=== PATIENT | male | born 1985 | race Caucasian/White ===

== ENCOUNTER 2018-11-01 19:49 | Inpatient (IN) ==
[2018-11-01 20:32] LABS: BASOPHILS # (AUTO) 0.1 X10^3/uL (0.0-0.1); BASOPHILS % (AUTO) 0.5 % (0.2-1.0); EOSINOPHILS # (AUTO) 0.1 x10^3/uL (0.0-0.2); EOSINOPHILS % (AUTO) 0.8 % (0.9-2.9); HEMATOCRIT 36.7 % (42.0-54.0); HEMOGLOBIN 12.6 g/dL (13.5-18.0); LYMPHOCYTES % (AUTO) 10.2 % (21.0-51.0); MEAN CORPUSCULAR HEMOGLOBIN 30.6 pg (27.0-34.0); MEAN CORPUSCULAR HGB CONC 34.3 g/dL (33.0-35.0); MEAN CORPUSCULAR VOLUME 89.1 fL (80.0-100.0); MEAN PLATELET VOLUME 8.2 fL (7.4-11.0); MONOCYTES # (AUTO) 1.9 x10^3/uL (0.3-0.8); MONOCYTES % (AUTO) 9.9 % (0.0-13.0); NEUTROPHILS # (AUTO) 15.1 x10^3/uL (2.2-4.8); NEUTROPHILS % (AUTO) 78.6 % (42.0-75.0); PLATELET COUNT 334 X10^3/uL (150.0-450.0); RED BLOOD COUNT 4.12 X10^6/uL (4.7-6.0); WHITE BLOOD COUNT 19.1 X10^3/uL (3.6-10.0)
[2018-11-01 20:46] LABS: BLOOD UREA NITROGEN 9 mg/dL (7-18); CALCIUM 8.5 mg/dL (8.5-10.1); CARBON DIOXIDE 27.5 mmol/L (21-32); CHLORIDE 100 mmol/L (98-107); COR NA(FOR HYPERGLY) 140 mmol/L (136-145); CREATININE 1.12 mg/dL (0.70-1.30); SODIUM 139 mmol/L (136-145); TROPONIN I < 0.02 ng/mL (0-1.5); eGFR NON BLACK RACES > 60 (>60)
--- NOTE | 2018-11-01 20:46 | RAD ---
HISTORY: Chest pain Study: Two views chest. Comparison: No recent priors. Findings: The trachea is midline. The cardiac silhouette is in upper limits of normal. There is somewhat loculated right-sided pleural disease which could reflect a loculated effusion and/or atypical consolidation in the right lower lobe. Medial basilar RLL airspace disease is also observed. Findings can be seen with pneumonia. Background changes of bronchitis are also observed. Follow-up chest CT imaging with IV contrast is suggested. No other acute cardiopulmonary abnormalities are observed; the left lung is clear. No pneumothorax. The bones are intact. IMPRESSION: Somewhat loculated right-sided pleural disease which could reflect a loculated effusion and/or atypical consolidation in the right lower lobe. Medial basilar RLL airspace disease is also observed. Findings can be seen with pneumonia. Background changes of bronchitis are also appreciated. Follow-up chest CT imaging with IV contrast is recommended. Reported By:
[2018-11-01 20:51] LABS: ALANINE AMINOTRANSFERASE 34 Units/L (12-78); ALBUMIN 2.9 g/dL (3.4-5.0); ALKALINE PHOSPHATASE 60 Units/L (46-116); ASPARTATE AMINO TRANSFERASE 16 Units/L (15-37); COR CA(FOR HYPOALB) 9.4 mg/dL (8.5-10.1); CREATINE KINASE 98 Units/L (39-308); CREATINE KINASE MB < 1.0 ng/mL (0-4.0); TOTAL PROTEIN 8.1 g/dL (6.4-8.2)
[2018-11-01] MEDS ORDERED: DUONEB 0.5 MG/3 MG NEB ONE (21:08)
--- NOTE | 2018-11-01 21:08 | DR.SOBA ---
HPI Time Seen Time Seen by Provider: 11/01/18 20:08 Primary Care Physician Primary Care Physician: NFD Complaints Chief Complaint Doctors Comments: A 32 y/o male c/o SOB since awakening this a.m. this progressed as the day went by necessitating the ED visit. He has had associated chest discomfort from coughing. The cough is non productive. HE has had a preceding fever of 1 week. He denies diaphoresis. Chief Complaint:: PT STATES" MY CHEST HAS BEEN HURTING ON THE RT SIDE INTO MY BACK I HAVE ALSO BEEN COUGHING ALOT. I BEEN RUNNING A FEVER FOR ABOUT A WEEK NOW. I TOOK MUCCINEX AND COUGH SYRUP BUT ITS NOT ANY BETTER, I GOT REAL SHORT OF BREATH TODAY" Reviewed Nurses Notes Reviewed: Yes Source History Provided: Patient Mode of Arrival Mode of Arrival: Ambulatory Timing Onset of Chief Complaint: 10/25/18 Duration Onset: a.m. Duration: Hours Context Onset:: At Rest PE Risk Factors:: None History of:: None Currently on:: Neither Prehospital Care:: None Modifying Factors Worsens:: Exertion Improves:: Rest and Sitting Up Associated Signs and Symptoms Associated Signs and Symptoms: Fever and Cough If Cough Cough: Nonproductive PMH PMH Past Medical History: No Past Surgical History: No Family History History of Family Medical Conditions: Yes Family Medical History: Diabetes Mellitus and Hypertension Social History Does any household member use tobacco: No Alcohol Use: Occasionally Lives With: Family Lives Where: Home infectious screening In the last 2 months have you had wt loss of >10#?: NO Have you had fever, night sweats or hemotysis?: No Have you traveled outside the country in the last 6 months?: No Isolation: Standard ROS Review of Systems Constitutional: Fever Eyes: No Symptoms Reported ENTM: No Symptoms Reported Respiratoy: Non-Productive Cough and Short of Breath Cardiovascular: No Symptoms Reported Gastrointestinal/Abdominal: No Symptoms Reported Genitourinary: No Symptoms Reported Neurological: No Symptoms Reported Musculoskeletal: No Symptoms Reported Integumentary: No Symptoms Reported Hematologic/Lymphatic: No Symptoms Reported Endocrine: No Symptoms Reported Psychiatric: No Symptoms Reported PE Vital Signs Vitals: Temperature 99.8 F Pulse Rate [Brachial] 99 Pulse Rate 96 Respiratory Rate 18 Blood Pressure [Right Arm] 172/73 Blood Pressure 139/77 O2 Sat by Pulse Oximetry 95 General Limitations: No Limitations General Appearance: Alert, In No Apparent Distress and Obese Head Head Exam: Normal Inspection, Atraumatic and Normocephalic Eyes Eye exam: Normal Appearance and EOMI ENT ENT Exam: Normal Exam, Normal Oropharynx and Mucous Membranes Moist Neck Neck Exam: Normal Inspection, Full ROM and Trachea Midline Chest Chest Inspection: Normal Inspection and Symmetric Chest Wall Rise Respiratory Respiratory Exam: Normal Lung Sounds Bilat Cardiovascular Cardiovascular Exam: Regular Rate, Normal Rhythm, Normal Heart Sounds, +S1 and +S2 Abdominal Exam Abdominal Exam: Normal Inspection, Normal Bowel Sounds and Soft Extremities Extremities Exam: Normal Inspection and Full ROM Back Back Exam: Normal Inspection and Full ROM Neurologic Neurological Exam: Alert and Oriented X3 Psychiatric Psychiatric Exam: Normal Affect and Normal Mood Skin Skin Exam: Dry and Normal Color COURSE Reevaluation 1st: Improved 2nd: Improved Education/Counseling Education/Counseling: Patient, Family, Education and Counseling Educated On: Treatment, Diagnosis, Prognosis and Needs for Follow Up ROR Labs Reviewed Laboratory Results Reviewed?: Yes Result Diagrams: 11/01/18 20:22 11/01/18 20:22 Laboratory: WBC 19.1 X10^3/uL (3.6-10.0) H 11/01/18 20:22 RBC 4.12 X10^6/uL (4.7-6.0) L 11/01/18 20:22 Hgb 12.6 g/dL (13.5-18.0) L 11/01/18 20:22 Hct 36.7 % (42.0-54.0) L 11/01/18 20:22 MCV 89.1 fL (80.0-100.0) 11/01/18 20:22 MCH 30.6 pg (27.0-34.0) 11/01/18 20:22 MCHC 34.3 g/dL (33.0-35.0) 11/01/18 20:22 RDW 13.0 % (11.6-16.5) 11/01/18 20:22 Plt Count 334 X10^3/uL (150.0-450.0) 11/01/18 20:22 MPV 8.2 fL (7.4-11.0) 11/01/18 20:22 Neut % (Auto) 78.6 % (42.0-75.0) H 11/01/18 20:22 Lymph % (Auto) 10.2 % (21.0-51.0) L 11/01/18 20:22 [place] % (Auto) 9.9 % (0.0-13.0) 11/01/18 20:22 Eos % (Auto) 0.8 % (0.9-2.9) L 11/01/18 20:22 Baso % (Auto) 0.5 % (0.2-1.0) 11/01/18 20:22 Neut # (Auto) 15.1 x10^3/uL (2.2-4.8) H 11/01/18 20:22 Lymph # (Auto) 2.0 X10^3/uL (1.3-2.9) 11/01/18 20:22 [place] # (Auto) 1.9 x10^3/uL (0.3-0.8) H 11/01/18 20:22 Eos # (Auto) 0.1 x10^3/uL (0.0-0.2) 11/01/18 20:22 Baso # (Auto) 0.1 X10^3/uL (0.0-0.1) 11/01/18 20:22 Absolute Nucleated RBC 0.0 /100WBC 11/01/18 20:22 PT 14.8 SECONDS (11.8-14.3) 11/01/18 20:22 INR Target Range - 11/01/18 20:22 INR 1.20 (0.8-1.3) 11/01/18 20:22 APTT 30.8 SECONDS (22.9-36.5) 11/01/18 20:22 PTT Comment - 11/01/18 20:22 Sodium 139 mmol/L (136-145) 11/01/18 20:22 Corrected Sodium 140 mmol/L (136-145) 11/01/18 20:22 Potassium 3.5 mmol/L (3.5-5.1) 11/01/18 20:22 Chloride 100 mmol/L (98-107) 11/01/18 20:22 Carbon Dioxide 27.5 mmol/L (21-32) 11/01/18 20:22 BUN 9 mg/dL (7-18) 11/01/18 20:22 Creatinine 1.12 mg/dL (0.70-1.30) 11/01/18 20:22 Est GFR (MDRD) Af Amer > 60 (>60) 11/01/18 20:22 Est GFR (MDRD) Non-Af > 60 (>60) 11/01/18 20:22 Glucose 128 mg/dL (65-99) H 11/01/18 20:22 Calcium 8.5 mg/dL (8.5-10.1) 11/01/18 20:22 Corrected Calcium 9.4 mg/dL (8.5-10.1) 11/01/18 20:22 Total Bilirubin 0.70 mg/dL (0.2-1.0) 11/01/18 20:22 AST 16 Units/L (15-37) 11/01/18 20:22 ALT 34 Units/L (12-78) 11/01/18 20:22 Alkaline Phosphatase 60 Units/L (46-116) 11/01/18 20:22 Creatine Kinase 98 Units/L (39-308) 11/01/18 20:22 CK-MB (CK-2) < 1.0 ng/mL (0-4.0) 11/01/18 20:22 CK/CKMB % Calc 1.0 % (<4) 11/01/18 20:22 Troponin I < 0.02 ng/mL (0-1.5) 11/01/18 20:22 B-Natriuretic Peptide 13.8 pg/mL (0-79) 11/01/18 20:22 Total Protein 8.1 g/dL (6.4-8.2) 11/01/18 20:22 Albumin 2.9 g/dL (3.4-5.0) L 11/01/18 20:22 Globulin 5.2 g/dL (2.5-4.5) H 11/01/18 20:22 Albumin/Globulin Ratio 0.6 Ratio (1.1-2.1) L 11/01/18 20:22 Other Results Comments: Radiology report on CXR: loculated Rt. sided pleural disease which could reflect a loculated effusion and or atypical consolidation in the RLL. F/u CT imaging with contrast is recommended. CT Scan of chest: Airspace consolidation most pronounced in the RLL, and also involving the RML. Partially loculated small to moderate Rt. sided pleural effusion. Findings are consistent with pneumonia. EKG Rate: 98 [place]: Normal Rhythm: NSR Block: None Hypertrophy: None ST: Normal Opioid Opioid Risk Tool Total: 0 Total Score Risk Category: Low Risk Copyright: Karlos DURBIN predicting aberrant behaviors Diagnosis Discharge Problem: Pleural effusion Pneumonia Qualifiers: Pneumonia type: due to unspecified organism Laterality: right Lung location: lower lobe of lung Qualified Code(s): J18.1 - Lobar pneumonia, unspecified organism Instructions Forms: Excuse From Work
[2018-11-01] MEDS ORDERED: DUONEB 0.5 MG/3 MG ONE (21:20)
--- NOTE | 2018-11-01 21:59 | CT ---
Examination: CT thorax with contrast. History: Shortness of breath Technique: Volumetric CT examination of the thorax was obtained with intravenous contrast. Axial, coronal, and sagittal data sets are submitted. Comparison: Same-day chest radiograph Findings: Thoracic aorta is normal in caliber. Heart is not enlarged. No pericardial effusion. No significant thoracic adenopathy. There is a small to moderate right-sided pleural effusion, which is partially loculated along the right lateral pleura. There is an airspace consolidation involving the right lower lobe with minimal airspace consolidation involving the right middle lobe. Left lung is clear. No evidence of pneumothorax. Airway is patent. Visualized upper abdomen is unremarkable. The bony thorax is unremarkable. Conclusion: Partially loculated small to moderate right-sided pleural effusion with airspace consolidation, most pronounced within the right lower lobe, also involving the right middle lobe. Findings are most compatible with pneumonia. Reported By:
[2018-11-01] MEDS ORDERED: ZOSYN VIAL 3.375 GRAMS 3.375 G in NS 100 ML IV + SPIKE MINIBAG* 100 ML IV ONE (22:23)
[2018-11-01] MEDS ORDERED: ZOSYN VIAL 3.375 GRAMS IV ONE (22:25)
[2018-11-01] MEDS ORDERED: NS 100 ML IV + SPIKE MINIBAG* 100 ML ONE (22:25)
[2018-11-02] MEDS ORDERED: DUONEB 0.5 MG/3 MG NEB SCH
[2018-11-02] MEDS ORDERED: NORCO 5/325 MG TAB ONE (00:23)
[2018-11-02] MEDS: NORCO 5/325 MG TAB PO PRN ×2 (00:24→21:15)
[2018-11-02] MEDS ORDERED: NS 1/2 1000 ML IV 1,000 ML ONE ×2 (00:29→05:55)
[2018-11-02] MEDS: NS 1/2 1000 ML IV 1,000 ML IV SCH ×3 (00:35→14:00)
[2018-11-02] MEDS ORDERED: TUSSIONEX PENNKINETIC SUSP ONE (00:36)
[2018-11-02] MEDS: TUSSIONEX PENNKINETIC SUSP PO PRN (00:42)
[2018-11-02] MEDS ORDERED: TYLENOL 325 MG TAB PO ONE (00:53)
[2018-11-02] MEDS: TYLENOL 325 MG TAB PO PRN ×4 (00:58→21:15)
[2018-11-02 01:00] VITALS: BMI 37.9
[2018-11-02] MEDS ORDERED: SALINE 3% 15 ML NEB TX NEB ONE (01:02)
[2018-11-02] MEDS ORDERED: TORADOL 30 MG VIAL IVP ONE (02:24)
[2018-11-02] MEDS ORDERED: TORADOL 30 MG VIAL ONE (02:25)
[2018-11-02 05:07] LABS: BASOPHILS # (AUTO) 0.1 X10^3/uL (0.0-0.1); BASOPHILS % (AUTO) 0.4 % (0.2-1.0); EOSINOPHILS # (AUTO) 0.1 x10^3/uL (0.0-0.2); EOSINOPHILS % (AUTO) 0.5 % (0.9-2.9); HEMATOCRIT 36.7 % (42.0-54.0); HEMOGLOBIN 12.4 g/dL (13.5-18.0); LYMPHOCYTES # (AUTO) 1.9 X10^3/uL (1.3-2.9); LYMPHOCYTES % (AUTO) 9.3 % (21.0-51.0); MEAN CORPUSCULAR HEMOGLOBIN 30.1 pg (27.0-34.0); MEAN CORPUSCULAR HGB CONC 33.7 g/dL (33.0-35.0); MEAN CORPUSCULAR VOLUME 89.5 fL (80.0-100.0); MEAN PLATELET VOLUME 8.9 fL (7.4-11.0); MONOCYTES # (AUTO) 1.9 x10^3/uL (0.3-0.8); NEUTROPHILS # (AUTO) 16.8 x10^3/uL (2.2-4.8); NEUTROPHILS % (AUTO) 80.8 % (42.0-75.0); PLATELET COUNT 320 X10^3/uL (150.0-450.0); RED BLOOD COUNT 4.11 X10^6/uL (4.7-6.0); RED CELL DISTRIBUTION WIDTH 13.1 % (11.6-16.5); WHITE BLOOD COUNT 20.8 X10^3/uL (3.6-10.0)
[2018-11-02 05:24] LABS: ALANINE AMINOTRANSFERASE 29 Units/L (12-78); ALBUMIN 2.6 g/dL (3.4-5.0); ALKALINE PHOSPHATASE 54 Units/L (46-116); ASPARTATE AMINO TRANSFERASE 12 Units/L (15-37); BLOOD UREA NITROGEN 9 mg/dL (7-18); CALCIUM 8.4 mg/dL (8.5-10.1); CHLORIDE 99 mmol/L (98-107); COR CA(FOR HYPOALB) 9.5 mg/dL (8.5-10.1); COR NA(FOR HYPERGLY) 136 mmol/L (136-145); CREATININE 0.91 mg/dL (0.70-1.30); SODIUM 135 mmol/L (136-145); TOTAL PROTEIN 7.6 g/dL (6.4-8.2); eGFR NON BLACK RACES > 60 (>60)
[2018-11-02 05:31] LABS: PLATELET MORPHOLOGY COMMENT NORMAL (NORMAL); TOXIC GRANULATION 1+
[2018-11-02] MEDS ORDERED: POTASSIUM CHLORIDE LIQ 20 MEQ UDC PO PRN (08:39)
[2018-11-02] MEDS ORDERED: MICRO K EXTEN CAP 10 MEQ PO PRN (08:39)
[2018-11-02] MEDS ORDERED: KLOR-CON PO PRN (08:39)
[2018-11-02] MEDS ORDERED: MAGNESIUM SULFATE 1 GRAM/100 mL PREMIX 1 GM/100 ML BAG IV PRN (08:39)
[2018-11-02] MEDS ORDERED: K-RIDER 10 MEQ/NS 100 ML 10 MEQ/100 ML BAG IV PRN (08:39)
[2018-11-02] MEDS ORDERED: POTASSIUM CHL 60 MEQ/NS 0.45% 500 ML IV PRN (08:39)
[2018-11-02] MEDS ORDERED: K-DUR TAB 20 MEQ PO PRN (08:39)
[2018-11-02] MEDS ORDERED: POTASSIUM CHL 40 MEQ/NS 0.45% 500 ML IV PRN (08:39)
[2018-11-02] MEDS: DUONEB 0.5 MG/3 MG NEB SCH ×4 (08:58→20:24)
[2018-11-02] MEDS ORDERED: ROCEPHIN VIAL 1 GRAM IVP SCH (09:00)
[2018-11-02] MEDS ORDERED: VIBRAMYCIN 100 MG in NS 100 ML IV + SPIKE MINIBAG* 100 ML IV SCH (09:00)
[2018-11-02] MEDS: ROBITUSSIN DM PO SCH ×4 (09:38→21:15)
[2018-11-02] MEDS: PROTONIX TAB 40 MG PO SCH (09:43)
[2018-11-02] MEDS: VSL#3 PO SCH (10:35)
[2018-11-02] MEDS: LEVAQUIN PREMIX IV 750 MG 750 MG/150 ML BAG IV SCH (11:42)
[2018-11-02] MEDS: TORADOL 30 MG VIAL IVP SCH ×3 (11:43→23:06)
[2018-11-02] MEDS ORDERED: ZOSYN VIAL 3.375 GRAMS IV SCH (14:00)
[2018-11-02] MEDS: ZOSYN VIAL 3.375 GRAMS 3.375 G in NS 100 ML IV + SPIKE MINIBAG* 100 ML IV SCH ×2 (14:12→21:15)
--- NOTE | 2018-11-02 18:30 | DR.H&P ---
H&P - History & Physical for Day of: H&P Date: 11/02/18 - Chief Complaint Chief Complaint: COUGH, SOB, FEVER - History of Present Illness History of Present Illness: IS A 32 YEAR OLD MALE WHO PRESENTE TO THE ER WITH COMPLAINTS OF SHORTNESS OF BREATH, NON-PRODUCTIVE COUGH, AND FEVER. SYMPTOMS REPORTEDLY STARTED ONE WEEK AGO. HE ALSO REPORTS PAIN TO THE RIGHT SIDE UPPER BACK AND RIGHT SIDE CHEST. HE REPORTS TAKING MUCINEX AND COUGH SYRUP AT HOME WITHOUT IMPROVEMENT IN SYMPTOMS. ON ARRIVAL, VITALS WERE 99.8-103-22-99%-139/77. LABS WERE OBTAINED. ABNORMAL LAB VALUES INCLUDE THE FOLLOWING: WBC 19.1, RBC 4.12, HGB 12.6, HCT 36.7, GLUCOSE 128, ALBUMIN 2.9, GLOBULIN 5.2. BLOOD AND SUPUTUM CULTURE OBTAINED. AN EKG WAS OBTAINED AND REVEALED: SINUS RHYTHM WITH HR 98. A CHEST XRAY WAS OBTAINED AND REVEALED: Somewhat loculated right-sided pleural disease which could reflect a loculated effusion and/or atypical consolidation in the right lower lobe. Medial basilar RLL airspace disease is also observed. Findings can be seen with pneumonia. Background changes of bronchitis are also appreciated. Follow-up chest CT imaging with IV contrast is recommended. A CHEST CT WITH CONTRAST WAS THEN OBTAINED AND REVEALED: Partially loculated small to moderate right-sided pleural effusion with airspace consolidation, most pronounced within the right lower lobe, also involving the right middle lobe. Findings are most compatible with pneumonia. HE WAS ADMITTED FOR FURTHER EVAULATION AND TREATMENT OF RIGHT MIDDLE AND LOWER LOBE PNEUMONIA. HE WAS STARTED ON IV DOXY AND IV ROCEPHIN, RESPIRATORY TX, AND SUPPLEMENTAL OXYGEN FROM THE ER. TODAY, WE WILL DISCONTINUE THE ROCEPHIN AND DOXY AND START IV ZOSYN AND IV LEVAQUIN. WE WILL ALSO START TORADOL 30MG IV Q6H SHANNON FOR CHEST DISCOMFORT DUE TO PLEURISY. OTHERWISE. WE WILL FOLLOW UP WITH AM LABS AND CONTINUE TO MONITOR. - Past Surgical History Surgical History: No History - Family History Family Medical History: Diabetes Mellitus, Hypertension - Social History Does patient currently use any type of tobacco product: Yes Have you used tobacco products in the last 12 months: Yes Type of Tobacco Use: Cigarettes Does any household member use tobacco: No Alcohol Use: Occasionally Drug Use: None - Medications Home Medications: No Known Drug Allergies Allergy (Verified 11/01/18 20:10) CONTINUE taking the following medications NK 11/02/18 [History] - Review of Systems Constitutional: Fever, Chills Eyes: No Symptoms Reported ENT: No Symptoms Reported Respiratory: Cough, Shortness of Breath, Wheezing Cardiovascular: Chest Pain Gastrointestinal: No Symptoms Reported Genitourinary: No Symptoms Reported Musculoskeletal: No Symptoms Reported Skin: No Symptoms Reported Neurological: No Symptoms Reported - Physical Exam Vital Signs: Temperature 99.7 F Pulse Rate [Brachial] 96 Pulse Rate 103 Respiratory Rate 16 Blood Pressure [Right Arm] 134/66 Blood Pressure 139/77 O2 Sat by Pulse Oximetry 93 Oriented: Normal Eyes: Normal Ear: Normal Nose: Normal Throat: Normal Respiratory: Wheezes Throughout Cardiovascular: Tachycardia. negative: S3, S4, Murmur : Normal Auscultation: Bowel Sounds: Normal Palpation: Normal Tenderness: Normal Skin: Normal Musculoskeletal: Normal Psychiatric: Normal Mood Description: Calm Affect: Normal Speech Pattern: Clear - Assessment/Plan (1) Pneumonia Qualifiers: Pneumonia type: due to unspecified organism Laterality: right Lung location: lower lobe of lung Qualified Code(s): J18.1 - Lobar pneumonia, unspecified organism Status: Acute Plan: IV ZOSYN, IV LEVAQUIN, RESPIRATORY TX, SUPPLEMENTAL OXYGEN, CONTINUE TO MONITOR (2) Pleurisy with effusion Status: Acute Plan: TORADOL 30MG IV Q6H SHANNON, RESPIRATORY TX, SUPPLEMENTAL OXYGEN, IV ANTIBIOTICS, CONTINUE TO MONITOR - Allergies Allergies/Adverse Reactions: Allergies Allergy/AdvReac Type Severity Reaction Status Date / Time No Known Drug Allergies Allergy Verified 11/01/18 20:10
[2018-11-02] MEDS: SOLU-Medrol 40 MG VIAL IVP SCH (21:15)
[2018-11-03] MEDS: NS 1/2 1000 ML IV 1,000 ML IV SCH ×4 (00:32→18:19)
[2018-11-03] MEDS ORDERED: NS 1/2 1000 ML IV 1,000 ML ONE ×3 (00:38→17:40)
[2018-11-03 05:30] LABS: BASOPHILS % (AUTO) 0.1 % (0.2-1.0); HEMATOCRIT 35.1 % (42.0-54.0); LYMPHOCYTES # (AUTO) 1.1 X10^3/uL (1.3-2.9); LYMPHOCYTES % (AUTO) 3.5 % (21.0-51.0); MEAN CORPUSCULAR HEMOGLOBIN 30.5 pg (27.0-34.0); MEAN CORPUSCULAR HGB CONC 34.2 g/dL (33.0-35.0); MEAN CORPUSCULAR VOLUME 89.1 fL (80.0-100.0); MEAN PLATELET VOLUME 8.5 fL (7.4-11.0); MONOCYTES # (AUTO) 1.5 x10^3/uL (0.3-0.8); MONOCYTES % (AUTO) 4.7 % (0.0-13.0); NEUTROPHILS # (AUTO) 28.5 x10^3/uL (2.2-4.8); NEUTROPHILS % (AUTO) 91.7 % (42.0-75.0); PLATELET COUNT 313 X10^3/uL (150.0-450.0); RED BLOOD COUNT 3.93 X10^6/uL (4.7-6.0)
[2018-11-03 05:34] LABS: WHITE BLOOD COUNT 31.2 X10^3/uL (3.6-10.0)
[2018-11-03 05:35] LABS: ALANINE AMINOTRANSFERASE 20 Units/L (12-78); ALBUMIN 2.3 g/dL (3.4-5.0); ALKALINE PHOSPHATASE 60 Units/L (46-116); ASPARTATE AMINO TRANSFERASE 14 Units/L (15-37); BLOOD UREA NITROGEN 11 mg/dL (7-18); CALCIUM 8.4 mg/dL (8.5-10.1); CARBON DIOXIDE 23.8 mmol/L (21-32); CHLORIDE 99 mmol/L (98-107); COR CA(FOR HYPOALB) 9.8 mg/dL (8.5-10.1); COR NA(FOR HYPERGLY) 135 mmol/L (136-145); SODIUM 134 mmol/L (136-145); TOTAL PROTEIN 7.7 g/dL (6.4-8.2); eGFR NON BLACK RACES > 60 (>60)
[2018-11-03 05:38] LABS: PLATELET MORPHOLOGY COMMENT NORMAL (NORMAL); TOXIC GRANULATION SLIGHT
--- NOTE | 2018-11-03 06:12 | RAD ---
HISTORY: Shortness of breath Study: Chest AP portable Comparison: 11/01/2018 plain film and chest CT Findings: Heart size difficult to assess due to obscuration the right heart border due in part to elevation of the right hemidiaphragm and a right pleural effusion. There has been interval progression of the parenchymal lung disease throughout the right middle and right lower lobes and new abnormal density in the right lung apex. This could represent worsening pneumonia and or atelectasis. The left lung remains clear. IMPRESSION: New opacification of the right upper lobe due either to consolidation or atelectasis or both. Bronchoscopy may be indicated Increasing density in the remainder of the right lung due to worsening consolidation or accompanying volume loss Elevated right hemidiaphragm Right pleural effusion is better demonstrated on the recent CT Reported By:
[2018-11-03] MEDS: ZOSYN VIAL 3.375 GRAMS 3.375 G in NS 100 ML IV + SPIKE MINIBAG* 100 ML IV SCH ×3 (06:21→22:16)
[2018-11-03] MEDS: SOLU-Medrol 40 MG VIAL IVP SCH ×3 (06:21→22:16)
[2018-11-03] MEDS: VSL#3 PO SCH (09:00)
[2018-11-03] MEDS: ROBITUSSIN DM PO SCH ×4 (09:03→21:02)
[2018-11-03] MEDS: PROTONIX TAB 40 MG PO SCH (09:03)
[2018-11-03] MEDS: LEVAQUIN PREMIX IV 750 MG 750 MG/150 ML BAG IV SCH (09:05)
[2018-11-03] MEDS: DUONEB 0.5 MG/3 MG NEB SCH ×4 (09:24→20:10)
[2018-11-03] MEDS: TYLENOL 325 MG TAB PO PRN ×2 (13:44→18:32)
[2018-11-04] MEDS ORDERED: NS 1/2 1000 ML IV 1,000 ML ONE ×3 (01:53→20:03)
[2018-11-04] MEDS: NS 1/2 1000 ML IV 1,000 ML IV SCH ×4 (02:00→21:11)
--- NOTE | 2018-11-04 04:41 | RAD ---
Chest radiograph, single view History: Shortness of breath Comparison: 11/03/2018. Findings: Cardiac silhouette remains enlarged and pulmonary vasculature congested. Loculated right-sided pleural effusion and adjacent airspace opacity are stable. Left lung remains largely clear. No evidence of pneumothorax. Conclusion: Stable examination with large loculated right-sided pleural effusion and adjacent airspace opacity. Reported By:
[2018-11-04 05:42] LABS: BASOPHILS % (AUTO) 0.1 % (0.2-1.0); HEMATOCRIT 34.6 % (42.0-54.0); HEMOGLOBIN 11.7 g/dL (13.5-18.0); LYMPHOCYTES # (AUTO) 1.1 X10^3/uL (1.3-2.9); LYMPHOCYTES % (AUTO) 3.2 % (21.0-51.0); MEAN CORPUSCULAR HEMOGLOBIN 30.3 pg (27.0-34.0); MEAN CORPUSCULAR HGB CONC 33.9 g/dL (33.0-35.0); MEAN CORPUSCULAR VOLUME 89.4 fL (80.0-100.0); MEAN PLATELET VOLUME 8.7 fL (7.4-11.0); MONOCYTES # (AUTO) 1.5 x10^3/uL (0.3-0.8); MONOCYTES % (AUTO) 4.5 % (0.0-13.0); NEUTROPHILS % (AUTO) 92.2 % (42.0-75.0); PLATELET COUNT 378 X10^3/uL (150.0-450.0); RED BLOOD COUNT 3.87 X10^6/uL (4.7-6.0); RED CELL DISTRIBUTION WIDTH 12.9 % (11.6-16.5)
[2018-11-04 05:44] LABS: ALANINE AMINOTRANSFERASE 48 Units/L (12-78); ALBUMIN 2.1 g/dL (3.4-5.0); ALKALINE PHOSPHATASE 67 Units/L (46-116); ASPARTATE AMINO TRANSFERASE 52 Units/L (15-37); BLOOD UREA NITROGEN 11 mg/dL (7-18); CALCIUM 8.6 mg/dL (8.5-10.1); CHLORIDE 101 mmol/L (98-107); COR CA(FOR HYPOALB) 10.1 mg/dL (8.5-10.1); COR NA(FOR HYPERGLY) 137 mmol/L (136-145); CREATININE 0.88 mg/dL (0.70-1.30); SODIUM 135 mmol/L (136-145); TOTAL PROTEIN 7.5 g/dL (6.4-8.2); WHITE BLOOD COUNT 34.7 X10^3/uL (3.6-10.0); eGFR NON BLACK RACES > 60 (>60)
[2018-11-04 05:54] LABS: PLATELET MORPHOLOGY COMMENT NORMAL (NORMAL)
[2018-11-04 05:55] LABS: TOXIC GRANULATION SLIGHT
[2018-11-04] MEDS: SOLU-Medrol 40 MG VIAL IVP SCH (06:22)
[2018-11-04] MEDS: ZOSYN VIAL 3.375 GRAMS 3.375 G in NS 100 ML IV + SPIKE MINIBAG* 100 ML IV SCH ×4 (06:22→21:11)
[2018-11-04] MEDS: DUONEB 0.5 MG/3 MG NEB SCH ×4 (08:03→20:15)
[2018-11-04] MEDS: VSL#3 PO SCH (09:07)
[2018-11-04] MEDS: ROBITUSSIN DM PO SCH ×4 (09:07→21:11)
[2018-11-04] MEDS: LEVAQUIN PREMIX IV 750 MG 750 MG/150 ML BAG IV SCH (09:07)
[2018-11-04] MEDS: PROTONIX TAB 40 MG PO SCH (09:08)
--- NOTE | 2018-11-04 10:08 | PCM.PROG ---
Progress Note - Progress Note for Day of Date of Exam: 11/03/18 - Subjective Subjective: IS A 32 YEAR OLD MALE WHO WAS ADMITTED FOR TREATMENT OF RIGHT MIDDLE AND LOWER LOBE PNEUMONIA. TODAY, HE IS ALERT AND ORIENTED, LYING IN BED ON MORNING ROUNDS. HE CONTINUES WITH COUGH, SHORTNESS OF BREATH, AND FEVER. HE REPORTS THAT COUGH HAS BEEN MORE PRODUCTIVE TODAY. ON EXAMINATION, BILATERAL LUNGS ARE NOTED WITH SCATTERED WHEEZING AND RHONCHI THROUGHOUT. ABDOMEN IS ROUND, SOFT, AND NON-TENDER WITH NORMAL BOWEL SOUNDS NOTED IN ALL QUADRANTS. HIS VITALS THIS MORNING ARE: 99.8-758-96-90-130/58. LABS WERE OBTAINED. ABNORMAL LAB VALUES INCLUDE THE FOLLOWING: WBC INCREASED TO 31.2, RBC 3.93, HGB 12.0, HCT 35.1, SODIUM 134, GLUCOSE 155, CALCIUM 8.4, AST 14, ALBUMIN 2.3, GLOBULIN 5.4. SPUTUM AND BLOOD CULTURES ARE PENDING. RISE IN WBC IS LIKELY DUE TO ADMINISTRATION OF STEROIDS. A CHEST XRAY WAS OBTAINED THIS MORNING AND REVEALED: New opacification of the right upper lobe due either to consolidation or atelectasis or both. Bronchoscopy may be indicated. Increasing density in the remainder of the right lung due to worsening consolidation or accompanying volume loss. Elevated right hemidiaphragm. Right pleural effusion is better demonstrated on the recent CT. HE IS CURRENTLY RECEIVING DUONEBS, LEVAQUIN 750MG IV DAILY, ZOSYN 3.375G IV TID, AND SOLU-MEDROL 80MG IV TID. WE WILL CONTINUE WITH CURRENT PLAN OF CARE TODAY. OTHERWISE, WE WILL FOLLOW UP WITH AM LABS AND CONTINUE TO MONITOR. - Past Medical Family Social History Past Med/Fam/Surg Hx: No changes since H&P Allergies: Allergies No Known Drug Allergies Allergy (Verified 11/01/18 20:10) - Review of Systems ROS: No change since H&P - Vital Signs and I&O's Vital Signs: Temperature 98.5 F Pulse Rate [Brachial] 90 Pulse Rate 89 Respiratory Rate 22 Blood Pressure [Right Arm] 145/78 Blood Pressure 139/77 O2 Sat by Pulse Oximetry 93 Intake and Output: Intake & Output 11/01/18 11/02/18 11/03/18 11/04/18 11:59 11:59 11:59 11:59 Intake Total 1140 / 1140 3890 / 3890 5395 / 5395 Balance 1140 / 1140 3890 / 3890 5395 / 5395 - Physical Exam Oriented: Normal Eyes: Normal Ear: Normal Nose: Normal Throat: Normal Respiratory: Generalized, Diminished, Wheezes, Rhonchi Cardiovascular: Tachycardia. negative: S3, S4, Murmur : Normal Auscultation: Bowel Sounds: Normal Palpation: Normal Tenderness: Normal Skin: Normal Musculoskeletal: Normal Psychiatric: Normal Mood Description: Calm Affect: Normal Speech Pattern: Clear, Appropriate - Laboratory and Diagnostics Result Diagrams: 11/04/18 04:34 11/04/18 04:34 Labs: 11/02/18 07:25 Sputum - Expectorated Sputum Sputum Culture - Final 11/02/18 07:25 Sputum - Expectorated Sputum - Final 11/01/18 22:43 Blood Blood Culture - Preliminary 11/01/18 22:33 Blood Blood Culture - Preliminary Laboratory WBC 34.7 X10^3/uL (3.6-10.0) H* 11/04/18 04:34 RBC 3.87 X10^6/uL (4.7-6.0) L 11/04/18 04:34 Hgb 11.7 g/dL (13.5-18.0) L 11/04/18 04:34 Hct 34.6 % (42.0-54.0) L 11/04/18 04:34 MCV 89.4 fL (80.0-100.0) 11/04/18 04:34 MCH 30.3 pg (27.0-34.0) 11/04/18 04:34 MCHC 33.9 g/dL (33.0-35.0) 11/04/18 04:34 RDW 12.9 % (11.6-16.5) 11/04/18 04:34 Plt Count 378 X10^3/uL (150.0-450.0) 11/04/18 04:34 Plt Count Comment Adequate (ADEQUATE) 11/04/18 04:34 MPV 8.7 fL (7.4-11.0) 11/04/18 04:34 Neut % (Auto) 92.2 % (42.0-75.0) H 11/04/18 04:34 Lymph % (Auto) 3.2 % (21.0-51.0) L 11/04/18 04:34 [place] % (Auto) 4.5 % (0.0-13.0) 11/04/18 04:34 Eos % (Auto) 0.0 % (0.9-2.9) L 11/04/18 04:34 Baso % (Auto) 0.1 % (0.2-1.0) L 11/04/18 04:34 Neut # (Auto) 32.0 x10^3/uL (2.2-4.8) H 11/04/18 04:34 Lymph # (Auto) 1.1 X10^3/uL (1.3-2.9) L 11/04/18 04:34 [place] # (Auto) 1.5 x10^3/uL (0.3-0.8) H 11/04/18 04:34 Eos # (Auto) 0.0 x10^3/uL (0.0-0.2) 11/04/18 04:34 Baso # (Auto) 0.0 X10^3/uL (0.0-0.1) 11/04/18 04:34 Absolute Nucleated RBC 0.0 /100WBC 11/04/18 04:34 Total Counted 100 11/04/18 04:34 Neutrophils % (Manual) 95 % (39-76) H 11/04/18 04:34 Lymphocytes % (Manual) 4 % (13-43) L 11/04/18 04:34 Monocytes % (Manual) 1 % (4-9) L 11/04/18 04:34 Toxic Granulation Slight A 11/04/18 04:34 Plt Morphology Comment Normal (NORMAL) 11/04/18 04:34 RBC Morphology Normal (NORMAL) 11/04/18 04:34 PT 14.8 SECONDS (11.8-14.3) 11/01/18 20:22 INR Target Range - 11/01/18 20:22 INR 1.20 (0.8-1.3) 11/01/18 20:22 APTT 30.8 SECONDS (22.9-36.5) 11/01/18 20:22 PTT Comment - 11/01/18 20:22 Sodium 135 mmol/L (136-145) L 11/04/18 04:34 Corrected Sodium 137 mmol/L (136-145) 11/04/18 04:34 Potassium 3.9 mmol/L (3.5-5.1) 11/04/18 04:34 Chloride 101 mmol/L (98-107) 11/04/18 04:34 Carbon Dioxide 24.0 mmol/L (21-32) 11/04/18 04:34 BUN 11 mg/dL (7-18) 11/04/18 04:34 Creatinine 0.88 mg/dL (0.70-1.30) 11/04/18 04:34 Est GFR (MDRD) Af Amer > 60 (>60) 11/04/18 04:34 Est GFR (MDRD) Non-Af > 60 (>60) 11/04/18 04:34 Glucose 198 mg/dL (65-99) H 11/04/18 04:34 Calcium 8.6 mg/dL (8.5-10.1) 11/04/18 04:34 Corrected Calcium 10.1 mg/dL (8.5-10.1) 11/04/18 04:34 Magnesium 2.1 mg/dL (1.7-2.9) 11/02/18 04:31 Total Bilirubin 0.50 mg/dL (0.2-1.0) 11/04/18 04:34 AST 52 Units/L (15-37) H 11/04/18 04:34 ALT 48 Units/L (12-78) 11/04/18 04:34 Alkaline Phosphatase 67 Units/L (46-116) 11/04/18 04:34 Creatine Kinase 98 Units/L (39-308) 11/01/18 20:22 CK-MB (CK-2) < 1.0 ng/mL (0-4.0) 11/01/18 20:22 CK/CKMB % Calc 1.0 % (<4) 11/01/18 20:22 Troponin I < 0.02 ng/mL (0-1.5) 11/01/18 20:22 B-Natriuretic Peptide 13.8 pg/mL (0-79) 11/01/18 20:22 Total Protein 7.5 g/dL (6.4-8.2) 11/04/18 04:34 Albumin 2.1 g/dL (3.4-5.0) L 11/04/18 04:34 Globulin 5.4 g/dL (2.5-4.5) H 11/04/18 04:34 Albumin/Globulin Ratio 0.4 Ratio (1.1-2.1) L 11/04/18 04:34 - Plan (1) Pneumonia Status: Acute Qualifiers: Pneumonia type: due to unspecified organism Laterality: right Lung location: unspecified part of lung Qualified Code(s): J18.9 - Pneumonia, unspecified organism Plan: IV ZOSYN, IV LEVAQUIN, RESPIRATORY TX, SOLU-MEDROL 80MG IV TI, SUPPLEMENTAL OXYGEN, CONTINUE TO MONITOR (2) Pleurisy with effusion Status: Acute Plan: TORADOL 30MG IV Q6H SHANNON, RESPIRATORY [place], SUPPLEMENTAL OXYGEN, IV ANTIBIOTICS, CONTINUE TO MONITOR
--- NOTE | 2018-11-04 21:26 | PCM.PROG ---
Progress Note - Progress Note for Day of Date of Exam: 11/04/18 - Subjective Subjective: IS A 32 YEAR OLD MALE WHO WAS ADMITTED FOR TREATMENT OF RIGHT MIDDLE AND LOWER LOBE PNEUMONIA. TODAY, HE IS ALERT AND ORIENTED, LYING IN BED ON MORNING ROUNDS. HE CONTINUES WITH COUGH AND SHORTNESS OF BREATH. HE HAS BEEN AFEBRILE THROUGHOUT THE NIGHT. HE REPORTS THAT COUGH CONTINUES TO BE PRODUCTIVE. ON EXAMINATION, BILATERAL LUNGS ARE NOTED WITH SCATTERED WHEEZING AND RHONCHI THROUGHOUT. ABDOMEN IS ROUND, SOFT, AND NON- TENDER WITH NORMAL BOWEL SOUNDS NOTED IN ALL QUADRANTS. HIS VITALS THIS MORNING ARE: 98.5-90-22-93%RA-145/78. LABS WERE OBTAINED. ABNORMAL LAB VALUES INCLUDE THE FOLLOWING: WBC INCREASED TO 34.7, RBC 3.87, HGB 11.7, HCT 34.6, SODIUM 135, GLUCOSE 198, AST 52, ALBUMIN 2.1, GLOBULIN 5.4. SPUTUM AND BLOOD CULTURES ARE PENDING. RISE IN WBC IS LIKELY DUE TO ADMINISTRATION OF STEROIDS. A CHEST XRAY WAS OBTAINED THIS MORNING AND REVEALED: Stable examination with large loculated right-sided pleural effusion and adjacent airspace opacity. HE IS CURRENTLY RECEIVING DUONEBS, LEVAQUIN 750MG IV DAILY, ZOSYN 3.375G IV TID, AND SOLU-MEDROL 80MG IV TID. WE WILL CONTINUE WITH CURRENT PLAN OF CARE TODAY, BUT HOLD SOLU- MEDROL. OTHERWISE, WE WILL FOLLOW UP WITH AM LABS AND CONTINUE TO MONITOR. - Past Medical Family Social History Past Med/Fam/Surg Hx: No changes since H&P Allergies: Allergies No Known Drug Allergies Allergy (Verified 11/01/18 20:10) - Review of Systems ROS: No change since H&P - Vital Signs and I&O's Vital Signs: Temperature 98.3 F Pulse Rate [Brachial] 94 Pulse Rate 93 Respiratory Rate 19 Blood Pressure [Right Arm] 127/58 Blood Pressure 139/77 O2 Sat by Pulse Oximetry 93 Intake and Output: Intake & Output 11/02/18 11/03/18 11/04/18 11/05/18 11:59 11:59 11:59 11:59 Intake Total 1140 / 1140 3890 / 3890 5395 / 5395 1260 / 1260 Balance 1140 / 1140 3890 / 3890 5395 / 5395 1260 / 1260 - Physical Exam Oriented: Normal Eyes: Normal Ear: Normal Nose: Normal Throat: Normal Respiratory: Generalized, Diminished, Wheezes, Rhonchi Cardiovascular: Tachycardia. negative: S3, S4, Murmur : Normal Auscultation: Bowel Sounds: Normal Palpation: Normal Tenderness: Normal Skin: Normal Musculoskeletal: Normal Psychiatric: Normal Mood Description: Calm Affect: Normal Speech Pattern: Clear, Appropriate - Laboratory and Diagnostics Result Diagrams: 11/04/18 04:34 11/04/18 04:34 Labs: 11/02/18 07:25 Sputum - Expectorated Sputum Sputum Culture - Final 11/02/18 07:25 Sputum - Expectorated Sputum - Final 11/01/18 22:43 Blood Blood Culture - Preliminary 11/01/18 22:33 Blood Blood Culture - Preliminary Laboratory WBC 34.7 X10^3/uL (3.6-10.0) H* 11/04/18 04:34 RBC 3.87 X10^6/uL (4.7-6.0) L 11/04/18 04:34 Hgb 11.7 g/dL (13.5-18.0) L 11/04/18 04:34 Hct 34.6 % (42.0-54.0) L 11/04/18 04:34 MCV 89.4 fL (80.0-100.0) 11/04/18 04:34 MCH 30.3 pg (27.0-34.0) 11/04/18 04:34 MCHC 33.9 g/dL (33.0-35.0) 11/04/18 04:34 RDW 12.9 % (11.6-16.5) 11/04/18 04:34 Plt Count 378 X10^3/uL (150.0-450.0) 11/04/18 04:34 Plt Count Comment Adequate (ADEQUATE) 11/04/18 04:34 MPV 8.7 fL (7.4-11.0) 11/04/18 04:34 Neut % (Auto) 92.2 % (42.0-75.0) H 11/04/18 04:34 Lymph % (Auto) 3.2 % (21.0-51.0) L 11/04/18 04:34 [place] % (Auto) 4.5 % (0.0-13.0) 11/04/18 04:34 Eos % (Auto) 0.0 % (0.9-2.9) L 11/04/18 04:34 Baso % (Auto) 0.1 % (0.2-1.0) L 11/04/18 04:34 Neut # (Auto) 32.0 x10^3/uL (2.2-4.8) H 11/04/18 04:34 Lymph # (Auto) 1.1 X10^3/uL (1.3-2.9) L 11/04/18 04:34 [place] # (Auto) 1.5 x10^3/uL (0.3-0.8) H 11/04/18 04:34 Eos # (Auto) 0.0 x10^3/uL (0.0-0.2) 11/04/18 04:34 Baso # (Auto) 0.0 X10^3/uL (0.0-0.1) 11/04/18 04:34 Absolute Nucleated RBC 0.0 /100WBC 11/04/18 04:34 Total Counted 100 11/04/18 04:34 Neutrophils % (Manual) 95 % (39-76) H 11/04/18 04:34 Lymphocytes % (Manual) 4 % (13-43) L 11/04/18 04:34 Monocytes % (Manual) 1 % (4-9) L 11/04/18 04:34 Toxic Granulation Slight A 11/04/18 04:34 Plt Morphology Comment Normal (NORMAL) 11/04/18 04:34 RBC Morphology Normal (NORMAL) 11/04/18 04:34 PT 14.8 SECONDS (11.8-14.3) 11/01/18 20:22 INR Target Range - 11/01/18 20:22 INR 1.20 (0.8-1.3) 11/01/18 20:22 APTT 30.8 SECONDS (22.9-36.5) 11/01/18 20:22 PTT Comment - 11/01/18 20:22 Sodium 135 mmol/L (136-145) L 11/04/18 04:34 Corrected Sodium 137 mmol/L (136-145) 11/04/18 04:34 Potassium 3.9 mmol/L (3.5-5.1) 11/04/18 04:34 Chloride 101 mmol/L (98-107) 11/04/18 04:34 Carbon Dioxide 24.0 mmol/L (21-32) 11/04/18 04:34 BUN 11 mg/dL (7-18) 11/04/18 04:34 Creatinine 0.88 mg/dL (0.70-1.30) 11/04/18 04:34 Est GFR (MDRD) Af Amer > 60 (>60) 11/04/18 04:34 Est GFR (MDRD) Non-Af > 60 (>60) 11/04/18 04:34 Glucose 198 mg/dL (65-99) H 11/04/18 04:34 Calcium 8.6 mg/dL (8.5-10.1) 11/04/18 04:34 Corrected Calcium 10.1 mg/dL (8.5-10.1) 11/04/18 04:34 Magnesium 2.1 mg/dL (1.7-2.9) 11/02/18 04:31 Total Bilirubin 0.50 mg/dL (0.2-1.0) 11/04/18 04:34 AST 52 Units/L (15-37) H 11/04/18 04:34 ALT 48 Units/L (12-78) 11/04/18 04:34 Alkaline Phosphatase 67 Units/L (46-116) 11/04/18 04:34 Creatine Kinase 98 Units/L (39-308) 11/01/18 20:22 CK-MB (CK-2) < 1.0 ng/mL (0-4.0) 11/01/18 20:22 CK/CKMB % Calc 1.0 % (<4) 11/01/18 20:22 Troponin I < 0.02 ng/mL (0-1.5) 11/01/18 20:22 B-Natriuretic Peptide 13.8 pg/mL (0-79) 11/01/18 20:22 Total Protein 7.5 g/dL (6.4-8.2) 11/04/18 04:34 Albumin 2.1 g/dL (3.4-5.0) L 11/04/18 04:34 Globulin 5.4 g/dL (2.5-4.5) H 08/29/19 04:34 Albumin/Globulin Ratio 0.4 Ratio (1.1-2.1) L 11/04/18 04:34 - Plan (1) Pneumonia Status: Acute Qualifiers: Pneumonia type: due to unspecified organism Laterality: right Lung location: unspecified part of lung Qualified Code(s): J18.9 - Pneumonia, unspecified organism Plan: IV ZOSYN, IV LEVAQUIN, RESPIRATORY TX, SUPPLEMENTAL OXYGEN, CONTINUE TO MONITOR (2) Pleurisy with effusion Status: Acute Plan: TORADOL 30MG IV Q6H SHANNON, RESPIRATORY TX, SUPPLEMENTAL OXYGEN, IV ANTIBIOTICS, CONTINUE TO MONITOR
[2018-11-05] MEDS ORDERED: NS 1/2 1000 ML IV 1,000 ML ONE ×2 (04:29→13:45)
[2018-11-05] MEDS: ZOSYN VIAL 3.375 GRAMS 3.375 G in NS 100 ML IV + SPIKE MINIBAG* 100 ML IV SCH ×3 (05:04→21:08)
[2018-11-05] MEDS: NS 1/2 1000 ML IV 1,000 ML IV SCH ×3 (05:05→13:53)
[2018-11-05 05:18] LABS: BASOPHILS # (AUTO) 0.1 X10^3/uL (0.0-0.1); BASOPHILS % (AUTO) 0.3 % (0.2-1.0); HEMATOCRIT 32.6 % (42.0-54.0); HEMOGLOBIN 11.1 g/dL (13.5-18.0); LYMPHOCYTES # (AUTO) 1.3 X10^3/uL (1.3-2.9); LYMPHOCYTES % (AUTO) 4.1 % (21.0-51.0); MEAN CORPUSCULAR HEMOGLOBIN 30.5 pg (27.0-34.0); MEAN CORPUSCULAR HGB CONC 34.1 g/dL (33.0-35.0); MEAN CORPUSCULAR VOLUME 89.4 fL (80.0-100.0); MEAN PLATELET VOLUME 7.9 fL (7.4-11.0); MONOCYTES # (AUTO) 2.1 x10^3/uL (0.3-0.8); MONOCYTES % (AUTO) 6.8 % (0.0-13.0); NEUTROPHILS # (AUTO) 27.2 x10^3/uL (2.2-4.8); NEUTROPHILS % (AUTO) 88.8 % (42.0-75.0); PLATELET COUNT 443 X10^3/uL (150.0-450.0); RED BLOOD COUNT 3.65 X10^6/uL (4.7-6.0); RED CELL DISTRIBUTION WIDTH 12.8 % (11.6-16.5)
[2018-11-05 05:42] LABS: WHITE BLOOD COUNT 30.7 X10^3/uL (3.6-10.0)
[2018-11-05 05:43] LABS: BAND NEUTROPHILS % 3 % (0-10); PLATELET MORPHOLOGY COMMENT NORMAL (NORMAL)
[2018-11-05 05:46] LABS: ALANINE AMINOTRANSFERASE 229 Units/L (12-78); ALBUMIN 1.9 g/dL (3.4-5.0); ALKALINE PHOSPHATASE 75 Units/L (46-116); ASPARTATE AMINO TRANSFERASE 180 Units/L (15-37); BLOOD UREA NITROGEN 10 mg/dL (7-18); CALCIUM 8.3 mg/dL (8.5-10.1); CARBON DIOXIDE 26.2 mmol/L (21-32); CHLORIDE 103 mmol/L (98-107); COR NA(FOR HYPERGLY) 138 mmol/L (136-145); CREATININE 0.73 mg/dL (0.70-1.30); SODIUM 136 mmol/L (136-145); eGFR NON BLACK RACES > 60 (>60)
--- NOTE | 2018-11-05 06:09 | RAD ---
Chest radiograph, single view History: Shortness of breath Comparison: 11/04/2018. Findings: Stable loculated right-sided pleural effusion and adjacent airspace opacity. Left lung remains clear. No evidence of pneumothorax. Conclusion: Stable examination with loculated pleural effusion and adjacent airspace opacity. Reported By:
[2018-11-05] MEDS: ROBITUSSIN DM PO SCH ×4 (08:52→21:08)
[2018-11-05] MEDS: VSL#3 PO SCH (08:52)
[2018-11-05] MEDS: LEVAQUIN PREMIX IV 750 MG 750 MG/150 ML BAG IV SCH (08:52)
[2018-11-05] MEDS: PROTONIX TAB 40 MG PO SCH (08:52)
[2018-11-05 09:21] LABS: ABG BASE EXCESS 3.1 mmol/L (-2.0-2.0)
[2018-11-05 09:22] LABS: ABG ALLEN TEST POS
[2018-11-05] MEDS: DUONEB 0.5 MG/3 MG NEB SCH ×4 (09:26→21:19)
[2018-11-05] MEDS: PULMICORT NEB TX 0.5 MG NEB SCH ×2 (09:36→21:19)
[2018-11-05] MEDS: MUCOMYST 20% 200 MG/ML NEB SCH ×4 (09:36→21:21)
[2018-11-05] MEDS: TUSSIONEX PENNKINETIC SUSP PO PRN (19:30)
[2018-11-05] MEDS: TYLENOL 325 MG TAB PO PRN (22:00)
[2018-11-06] MEDS ORDERED: NS 1/2 1000 ML IV 1,000 ML ONE ×3 (03:19→22:10)
[2018-11-06] MEDS: TYLENOL 325 MG TAB PO PRN ×2 (04:16→16:26)
[2018-11-06] MEDS: ZOSYN VIAL 3.375 GRAMS 3.375 G in NS 100 ML IV + SPIKE MINIBAG* 100 ML IV SCH ×2 (06:00→13:59)
[2018-11-06 06:04] LABS: BASOPHILS # (AUTO) 0.2 X10^3/uL (0.0-0.1); BASOPHILS % (AUTO) 0.7 % (0.2-1.0); EOSINOPHILS % (AUTO) 0.1 % (0.9-2.9); HEMATOCRIT 35.3 % (42.0-54.0); HEMOGLOBIN 12.1 g/dL (13.5-18.0); LYMPHOCYTES # (AUTO) 2.8 X10^3/uL (1.3-2.9); LYMPHOCYTES % (AUTO) 11.3 % (21.0-51.0); MEAN CORPUSCULAR HEMOGLOBIN 30.5 pg (27.0-34.0); MEAN CORPUSCULAR HGB CONC 34.2 g/dL (33.0-35.0); MEAN CORPUSCULAR VOLUME 89.2 fL (80.0-100.0); MEAN PLATELET VOLUME 7.7 fL (7.4-11.0); MONOCYTES % (AUTO) 8.4 % (0.0-13.0); NEUTROPHILS # (AUTO) 19.4 x10^3/uL (2.2-4.8); NEUTROPHILS % (AUTO) 79.5 % (42.0-75.0); PLATELET COUNT 440 X10^3/uL (150.0-450.0); RED BLOOD COUNT 3.95 X10^6/uL (4.7-6.0); RED CELL DISTRIBUTION WIDTH 13.1 % (11.6-16.5); WHITE BLOOD COUNT 24.5 X10^3/uL (3.6-10.0)
[2018-11-06 06:06] LABS: ALANINE AMINOTRANSFERASE 227 Units/L (12-78); ALBUMIN 1.9 g/dL (3.4-5.0); ALKALINE PHOSPHATASE 72 Units/L (46-116); ASPARTATE AMINO TRANSFERASE 106 Units/L (15-37); BLOOD UREA NITROGEN 9 mg/dL (7-18); CALCIUM 8.3 mg/dL (8.5-10.1); CARBON DIOXIDE 25.1 mmol/L (21-32); CHLORIDE 102 mmol/L (98-107); CREATININE 0.82 mg/dL (0.70-1.30); SODIUM 137 mmol/L (136-145); TOTAL PROTEIN 6.8 g/dL (6.4-8.2); eGFR NON BLACK RACES > 60 (>60)
[2018-11-06 06:32] LABS: BAND NEUTROPHILS % 4 % (0-10); PLATELET MORPHOLOGY COMMENT NORMAL (NORMAL)
[2018-11-06] MEDS: PULMICORT NEB TX 0.5 MG NEB SCH ×2 (08:08→21:55)
[2018-11-06] MEDS: MUCOMYST 20% 200 MG/ML NEB SCH ×5 (08:09→21:55)
[2018-11-06] MEDS: DUONEB 0.5 MG/3 MG NEB SCH ×5 (08:09→21:55)
[2018-11-06] MEDS: LEVAQUIN PREMIX IV 750 MG 750 MG/150 ML BAG IV SCH (08:50)
[2018-11-06] MEDS: VSL#3 PO SCH (08:51)
[2018-11-06] MEDS: ROBITUSSIN DM PO SCH ×4 (08:51→20:57)
[2018-11-06] MEDS: PROTONIX TAB 40 MG PO SCH (08:51)
[2018-11-06 09:15] LABS: ABG ALLEN TEST POS; ABG BASE EXCESS 3.5 mmol/L (-2.0-2.0); ABG HCO3 26.7 mmol/L (22-26)
--- NOTE | 2018-11-06 11:08 | RAD ---
Examination: Chest, PA and lateral views History: Pneumonia SOB Comparison 11/05/2018, chest CT 11/01/2018 Findings: Extensive lobulated pleural density fills virtually the entire right hemithorax, as before. The heart is normal in size and remains in normal position. The left chest is clear. Impression: No definite change since 1 day earlier. Findings in the right chest consistent with CT documented loculated pleural fluid and underlying pneumonia. Reported By:
[2018-11-06] MEDS: NS 1/2 1000 ML IV 1,000 ML IV SCH ×4 (11:58→22:15)
[2018-11-06] MEDS ORDERED: ZESTRIL TAB 5 MG ONE (13:54)
[2018-11-06] MEDS: ZESTRIL TAB 5 MG PO SCH (13:59)
[2018-11-06] MEDS: TORADOL 30 MG VIAL IVP SCH (17:42)
[2018-11-06] MEDS ORDERED: NS 100 ML IV 100 ML ONE (22:11)
[2018-11-07] MEDS: TORADOL 30 MG VIAL IVP SCH ×2 (04:40→09:49)
[2018-11-07 05:41] LABS: BASOPHILS # (AUTO) 0.1 X10^3/uL (0.0-0.1); BASOPHILS % (AUTO) 0.6 % (0.2-1.0); EOSINOPHILS # (AUTO) 0.3 x10^3/uL (0.0-0.2); HEMATOCRIT 35.6 % (42.0-54.0); HEMOGLOBIN 12.2 g/dL (13.5-18.0); LYMPHOCYTES # (AUTO) 2.2 X10^3/uL (1.3-2.9); LYMPHOCYTES % (AUTO) 8.5 % (21.0-51.0); MEAN CORPUSCULAR HEMOGLOBIN 30.6 pg (27.0-34.0); MEAN CORPUSCULAR HGB CONC 34.2 g/dL (33.0-35.0); MEAN CORPUSCULAR VOLUME 89.5 fL (80.0-100.0); MONOCYTES # (AUTO) 1.6 x10^3/uL (0.3-0.8); NEUTROPHILS # (AUTO) 21.9 x10^3/uL (2.2-4.8); NEUTROPHILS % (AUTO) 83.9 % (42.0-75.0); PLATELET COUNT 456 X10^3/uL (150.0-450.0); RED BLOOD COUNT 3.97 X10^6/uL (4.7-6.0); WHITE BLOOD COUNT 26.1 X10^3/uL (3.6-10.0)
[2018-11-07 05:53] LABS: ALANINE AMINOTRANSFERASE 138 Units/L (12-78); ALKALINE PHOSPHATASE 73 Units/L (46-116); ASPARTATE AMINO TRANSFERASE 34 Units/L (15-37); BLOOD UREA NITROGEN 9 mg/dL (7-18); CALCIUM 8.2 mg/dL (8.5-10.1); CARBON DIOXIDE 27.5 mmol/L (21-32); CHLORIDE 102 mmol/L (98-107); COR CA(FOR HYPOALB) 9.8 mg/dL (8.5-10.1); CREATININE 0.86 mg/dL (0.70-1.30); SODIUM 136 mmol/L (136-145); TOTAL PROTEIN 7.1 g/dL (6.4-8.2); eGFR NON BLACK RACES > 60 (>60)
[2018-11-07 05:54] LABS: BAND NEUTROPHILS % 2 % (0-10)
[2018-11-07 05:55] LABS: PLATELET MORPHOLOGY COMMENT NORMAL (NORMAL)
[2018-11-07] MEDS: ZOSYN VIAL 3.375 GRAMS 3.375 G in NS 100 ML IV + SPIKE MINIBAG* 100 ML IV SCH ×4 (05:58→20:53)
[2018-11-07] MEDS ORDERED: NS 1/2 1000 ML IV 1,000 ML ONE ×2 (06:19→18:09)
[2018-11-07] MEDS: NS 1/2 1000 ML IV 1,000 ML IV SCH ×4 (06:22→20:53)
[2018-11-07] MEDS: PULMICORT NEB TX 0.5 MG NEB SCH ×2 (09:04→20:25)
[2018-11-07] MEDS: DUONEB 0.5 MG/3 MG NEB SCH ×4 (09:04→20:25)
[2018-11-07] MEDS: MUCOMYST 20% 200 MG/ML NEB SCH ×4 (09:04→20:25)
[2018-11-07] MEDS: ROBITUSSIN DM PO SCH ×4 (09:48→20:53)
[2018-11-07] MEDS: LEVAQUIN PREMIX IV 750 MG 750 MG/150 ML BAG IV SCH (09:48)
[2018-11-07] MEDS: VSL#3 PO SCH (09:49)
[2018-11-07] MEDS: ZESTRIL TAB 5 MG PO SCH (09:49)
[2018-11-07] MEDS: PROTONIX TAB 40 MG PO SCH (09:49)
[2018-11-08] MEDS ORDERED: NS 1/2 1000 ML IV 1,000 ML ONE ×2 (02:32→20:13)
[2018-11-08] MEDS: NS 1/2 1000 ML IV 1,000 ML IV SCH ×2 (03:56→11:13)
[2018-11-08 05:23] LABS: BASOPHILS # (AUTO) 0.2 X10^3/uL (0.0-0.1); BASOPHILS % (AUTO) 0.6 % (0.2-1.0); EOSINOPHILS # (AUTO) 0.3 x10^3/uL (0.0-0.2); EOSINOPHILS % (AUTO) 0.9 % (0.9-2.9); HEMATOCRIT 33.9 % (42.0-54.0); HEMOGLOBIN 11.7 g/dL (13.5-18.0); LYMPHOCYTES # (AUTO) 2.6 X10^3/uL (1.3-2.9); LYMPHOCYTES % (AUTO) 8.7 % (21.0-51.0); MEAN CORPUSCULAR HEMOGLOBIN 30.8 pg (27.0-34.0); MEAN CORPUSCULAR HGB CONC 34.6 g/dL (33.0-35.0); MEAN CORPUSCULAR VOLUME 89.1 fL (80.0-100.0); MEAN PLATELET VOLUME 8.2 fL (7.4-11.0); MONOCYTES # (AUTO) 1.6 x10^3/uL (0.3-0.8); MONOCYTES % (AUTO) 5.5 % (0.0-13.0); NEUTROPHILS # (AUTO) 25.4 x10^3/uL (2.2-4.8); NEUTROPHILS % (AUTO) 84.3 % (42.0-75.0); PLATELET COUNT 494 X10^3/uL (150.0-450.0); RED CELL DISTRIBUTION WIDTH 13.2 % (11.6-16.5)
[2018-11-08 05:33] LABS: ALANINE AMINOTRANSFERASE 104 Units/L (12-78); ALKALINE PHOSPHATASE 78 Units/L (46-116); ASPARTATE AMINO TRANSFERASE 33 Units/L (15-37); BLOOD UREA NITROGEN 7 mg/dL (7-18); CALCIUM 8.3 mg/dL (8.5-10.1); CARBON DIOXIDE 23.1 mmol/L (21-32); CHLORIDE 101 mmol/L (98-107); COR CA(FOR HYPOALB) 9.9 mg/dL (8.5-10.1); COR NA(FOR HYPERGLY) 134 mmol/L (136-145); CREATININE 0.73 mg/dL (0.70-1.30); SODIUM 134 mmol/L (136-145); TOTAL PROTEIN 7.3 g/dL (6.4-8.2); eGFR NON BLACK RACES > 60 (>60)
[2018-11-08 05:58] LABS: BAND NEUTROPHILS % 1 % (0-10); PLATELET MORPHOLOGY COMMENT NORMAL (NORMAL); WHITE BLOOD COUNT 30.1 X10^3/uL (3.6-10.0)
[2018-11-08] MEDS: ZOSYN VIAL 3.375 GRAMS 3.375 G in NS 100 ML IV + SPIKE MINIBAG* 100 ML IV SCH ×3 (06:36→21:01)
--- NOTE | 2018-11-08 07:06 | RAD ---
HISTORY: Follow-up pneumonia, shortness of breath, cough Study: Chest AP portable Comparison: 11/06/2018 Findings: There is no significant change in the previously described lobular density in the right hemithorax secondary to the patient's known loculated pleural effusion underlying pneumonia and likely elevation of the right hemidiaphragm. The right apex is aerated but with some subsegmental atelectasis present the left lung is clear. Heart size difficult to assess due to obscuration of the right heart border. IMPRESSION: No significant change from the prior examination Reported By:
[2018-11-08] MEDS: PULMICORT NEB TX 0.5 MG NEB SCH ×2 (08:13→20:35)
[2018-11-08] MEDS: DUONEB 0.5 MG/3 MG NEB SCH ×4 (08:13→20:35)
[2018-11-08] MEDS: LEVAQUIN PREMIX IV 750 MG 750 MG/150 ML BAG IV SCH (08:45)
[2018-11-08] MEDS: ROBITUSSIN DM PO SCH ×4 (08:45→20:57)
[2018-11-08] MEDS: ZESTRIL TAB 5 MG PO SCH (08:59)
[2018-11-08] MEDS: VSL#3 PO SCH (08:59)
[2018-11-08] MEDS: PROTONIX TAB 40 MG PO SCH (08:59)
[2018-11-08] MEDS ORDERED: LASIX IVP ONE (10:23)
[2018-11-08 10:41] LABS: ABG ALLEN TEST POS; ABG BASE EXCESS 3.2 mmol/L (-2.0-2.0); ABG HCO3 26.9 mmol/L (22-26)
[2018-11-08] MEDS ORDERED: PHARMACY CONSULT - VANCOMYCIN XX SCH (11:00)
[2018-11-08] MEDS: VANCOMYCIN HCL 1 G in D5W 250 ML IV 250 ML IV SCH ×2 (12:35→20:59)
[2018-11-08] MEDS: LOVENOX INJ 40 MG SYR SC SCH (14:47)
[2018-11-09] MEDS: NS 1/2 1000 ML IV 1,000 ML IV SCH ×2 (04:26→15:10)
[2018-11-09 05:30] LABS: BASOPHILS % (AUTO) 0.2 % (0.2-1.0); EOSINOPHILS # (AUTO) 0.1 x10^3/uL (0.0-0.2); EOSINOPHILS % (AUTO) 0.6 % (0.9-2.9); HEMATOCRIT 34.4 % (42.0-54.0); HEMOGLOBIN 11.5 g/dL (13.5-18.0); LYMPHOCYTES # (AUTO) 2.3 X10^3/uL (1.3-2.9); LYMPHOCYTES % (AUTO) 9.3 % (21.0-51.0); MEAN CORPUSCULAR HGB CONC 33.5 g/dL (33.0-35.0); MEAN CORPUSCULAR VOLUME 89.6 fL (80.0-100.0); MEAN PLATELET VOLUME 8.1 fL (7.4-11.0); MONOCYTES # (AUTO) 1.8 x10^3/uL (0.3-0.8); MONOCYTES % (AUTO) 7.5 % (0.0-13.0); NEUTROPHILS # (AUTO) 20.1 x10^3/uL (2.2-4.8); NEUTROPHILS % (AUTO) 82.4 % (42.0-75.0); PLATELET COUNT 521 X10^3/uL (150.0-450.0); RED BLOOD COUNT 3.84 X10^6/uL (4.7-6.0); RED CELL DISTRIBUTION WIDTH 13.3 % (11.6-16.5); WHITE BLOOD COUNT 24.4 X10^3/uL (3.6-10.0)
[2018-11-09 05:33] LABS: ALANINE AMINOTRANSFERASE 92 Units/L (12-78); ALBUMIN 2.1 g/dL (3.4-5.0); ALKALINE PHOSPHATASE 82 Units/L (46-116); ASPARTATE AMINO TRANSFERASE 39 Units/L (15-37); BLOOD UREA NITROGEN 7 mg/dL (7-18); CALCIUM 8.4 mg/dL (8.5-10.1); CARBON DIOXIDE 25.1 mmol/L (21-32); CHLORIDE 100 mmol/L (98-107); COR CA(FOR HYPOALB) 9.9 mg/dL (8.5-10.1); CREATININE 0.77 mg/dL (0.70-1.30); SODIUM 134 mmol/L (136-145); TOTAL PROTEIN 7.7 g/dL (6.4-8.2); eGFR NON BLACK RACES > 60 (>60)
[2018-11-09] MEDS: VANCOMYCIN HCL 1 G in D5W 250 ML IV 250 ML IV SCH (05:43)
[2018-11-09] MEDS: ZOSYN VIAL 3.375 GRAMS 3.375 G in NS 100 ML IV + SPIKE MINIBAG* 100 ML IV SCH ×3 (05:46→21:18)
[2018-11-09 05:52] LABS: PLATELET MORPHOLOGY COMMENT NORMAL (NORMAL)
--- NOTE | 2018-11-09 07:25 | CT ---
CTA chest with contrast per pulmonary embolism protocol Indication:Shortness of breath Comparison: 11/01/2018 Technique: Multiple axial images of the chest were obtained from the thoracic inlet to the upper abdomen after the administration of IV contrast.Coronal and Sagittal MIP images were also provided. Dose reduction techniques including automated exposure control (AEC) and adjustment of mA and kV were utilized. Findings: Examination is severely limited for evaluation of pulmonary thromboembolism secondary to suboptimal contrast bolus opacification. No central pulmonary arterial filling defect or pulmonary arterial dilatation. Since previous examination there is enlargement of loculated moderate size pleural effusions. Gas is now noted throughout the dependent portion of the right-sided pleural effusion consistent with either empyema or bronchopleural fistula. Increased interlobular septal thickening within the right middle and lower lobe with multiple areas of peribronchial consolidation also present within the right middle and lower lobe most severely affecting the central portion of both lobes. Left upper lobe demonstrate scarring without focal airspace consolidation. The left lung is clear. No left-sided pleural effusion. There are enlarged upper paratracheal lymph nodes for example a lymph node measures approximately 15 mm in short axis on axial image 25. Enlarged right hilar, right lower paratracheal and subcarinal lymph nodes. No left-sided hilar lymphadenopathy. There is a mildly enlarged right pericardiophrenic lymph node. Thoracic aorta is normal in caliber. Arch vessels are normal in caliber and configuration. Heart size is within normal limits. Review of bone windows demonstrates no acute osseous abnormality. Imaging of the upper abdomen demonstrates no acute inflammatory process. Impression: 1. No PTE however evaluation is significant limited by contrast bolus timing for detection of segmental or subsegmental pulmonary thromboembolism. 2. Progressive enlargement of loculated right-sided pleural effusions, on today's examination there is moderate amount of gas noted within the dependent portion of the right pleural fluid collection most consistent with an empyema; however the possibility of a bronchopleural fistula is not excluded and clinical correlation is needed. 3. Predominately right middle and lower lobe peribronchial consolidation and reticulation are most consistent with bronchopneumonia. 4. Enlarged right upper lower paratracheal, right hilar and subcarinal lymph nodes are likely reactive to the above described acute infectious process and empyema; however attention on follow-up chest CT examination after completion of therapy is recommended to ensure resolution. Reported By:
[2018-11-09] MEDS: LEVAQUIN PREMIX IV 750 MG 750 MG/150 ML BAG IV SCH (08:46)
[2018-11-09] MEDS: VSL#3 PO SCH (08:46)
[2018-11-09] MEDS: ROBITUSSIN DM PO SCH ×4 (08:46→21:18)
[2018-11-09] MEDS: LOVENOX INJ 40 MG SYR SC SCH (08:46)
[2018-11-09] MEDS: PROTONIX TAB 40 MG PO SCH (08:46)
[2018-11-09] MEDS: ZESTRIL TAB 5 MG PO SCH (08:47)
[2018-11-09] MEDS: PULMICORT NEB TX 0.5 MG NEB SCH ×2 (09:01→20:36)
[2018-11-09] MEDS: DUONEB 0.5 MG/3 MG NEB SCH ×4 (09:01→20:36)
--- NOTE | 2018-11-09 10:34 | RAD ---
History: Shortness of breath and pneumonia Study: Upright portable AP chest Comparison: Yesterday Findings: There is similar appearance of a loculated right lateral pleural fluid fluid collection. There is elevation of the right hemidiaphragm. There is subsegmental atelectasis in the right lung with patchy streaky densities in the right upper lobe and right middle lobe and probable consolidation at the right lung base. The left lung is grossly clear. There is an air-fluid level in a right basilar loculated fluid collection. Impression: No significant change in loculated right pleural fluid collections lung suspicious for empyema with subsegmental atelectasis in the right lung. There is an air-fluid level in a loculated pleural fluid collection at the right lung base. Reported By:
[2018-11-09 13:18] LABS: CREATININE 0.8 mg/dL (0.70-1.30); VANCOMYCIN,TROUGH 4.2 ug/mL (15-20)
[2018-11-09] MEDS ORDERED: PHARMACY COMMENT IV NR (13:30)
[2018-11-09] MEDS: VANCOMYCIN HCL IV SCH ×2 (14:56→21:18)
[2018-11-09] MEDS: NS IV SCH ×2 (14:56→21:18)
[2018-11-09] MEDS ORDERED: NS 1/2 1000 ML IV 1,000 ML ONE (15:00)
[2018-11-09] MEDS ORDERED: KETALAR ONE (15:18)
--- NOTE | 2018-11-10 04:58 | RAD ---
Chest, one view Indication: Pneumonia, shortness of breath Comparison: 11/09/2018 Findings: Heart is stable in size. Moderate-sized loculated fluid and gas containing right pleural effusion, compatible with suspected empyema and atelectasis and consolidation of the right lung base appears essentially unchanged since prior exam. Left lung remains clear. No pneumothorax. Impression: Stable chest exam. Reported By:
[2018-11-10] MEDS: NS IV SCH ×3 (05:02→21:06)
[2018-11-10] MEDS: VANCOMYCIN HCL IV SCH ×3 (05:02→21:06)
[2018-11-10] MEDS: ZOSYN VIAL 3.375 GRAMS 3.375 G in NS 100 ML IV + SPIKE MINIBAG* 100 ML IV SCH ×3 (06:30→21:18)
[2018-11-10 06:46] LABS: BASOPHILS # (AUTO) 0.1 X10^3/uL (0.0-0.1); BASOPHILS % (AUTO) 0.5 % (0.2-1.0); EOSINOPHILS # (AUTO) 0.1 x10^3/uL (0.0-0.2); EOSINOPHILS % (AUTO) 0.7 % (0.9-2.9); HEMATOCRIT 34.8 % (42.0-54.0); HEMOGLOBIN 11.9 g/dL (13.5-18.0); LYMPHOCYTES # (AUTO) 2.1 X10^3/uL (1.3-2.9); LYMPHOCYTES % (AUTO) 10.1 % (21.0-51.0); MEAN CORPUSCULAR HEMOGLOBIN 30.6 pg (27.0-34.0); MEAN CORPUSCULAR VOLUME 89.8 fL (80.0-100.0); MEAN PLATELET VOLUME 7.5 fL (7.4-11.0); MONOCYTES # (AUTO) 1.7 x10^3/uL (0.3-0.8); MONOCYTES % (AUTO) 8.3 % (0.0-13.0); NEUTROPHILS # (AUTO) 16.4 x10^3/uL (2.2-4.8); NEUTROPHILS % (AUTO) 80.4 % (42.0-75.0); PLATELET COUNT 546 X10^3/uL (150.0-450.0); RED BLOOD COUNT 3.88 X10^6/uL (4.7-6.0); WHITE BLOOD COUNT 20.4 X10^3/uL (3.6-10.0)
[2018-11-10 06:53] LABS: ALANINE AMINOTRANSFERASE 95 Units/L (12-78); ALBUMIN 2.2 g/dL (3.4-5.0); ALKALINE PHOSPHATASE 80 Units/L (46-116); ASPARTATE AMINO TRANSFERASE 43 Units/L (15-37); BLOOD UREA NITROGEN 7 mg/dL (7-18); CALCIUM 8.6 mg/dL (8.5-10.1); CARBON DIOXIDE 24.7 mmol/L (21-32); CHLORIDE 102 mmol/L (98-107); CREATININE 0.75 mg/dL (0.70-1.30); SODIUM 136 mmol/L (136-145); eGFR NON BLACK RACES > 60 (>60)
[2018-11-10] MEDS: LEVAQUIN PREMIX IV 750 MG 750 MG/150 ML BAG IV SCH (08:40)
--- NOTE | 2018-11-10 08:45 | PCM.PROG ---
Progress Note - Progress Note for Day of Date of Exam: 11/09/18 - Subjective Subjective: IS A 32 YEAR OLD MALE WHO WAS ADMITTED FOR TREATMENT OF RIGHT MIDDLE AND LOWER LOBE PNEUMONIA. TODAY, HE IS ALERT AND ORIENTED, LYING IN BED ON MORNING ROUNDS. HE CONTINUES WITH COUGH AND REPORTS INCREASED SHORTNESS OF BREATH. HE DID HAVE A LOW GRADE FEVER THROUGHOUT THE NI GHT. ON EXAMINATION, BILATERAL LUNGS ARE NOTED WITH SCATTERED WHEEZING AND RHONCHI THROUGHOUT. ABDOMEN IS ROUND, SOFT, AND NON-TENDER WITH NORMAL BOWEL SOUNDS NOTED IN ALL QUADRANTS. HIS VITALS THIS MORNING ARE: 98.5-92-22-94%-129/64. LABS WERE OBTAINED. ABNORMAL LAB VALUES INCLUDE THE FOLLOWING: WBC DECREASED TO 24.4, RBC 3.84, HGB 11.5, HCT 34.4, PLT COUNT 521, SODIUM 134, GLUCOSE 105, CALCIUM 8.4, AST 39, ALT 92, ALBUMIN 2.1, GLOBULIN 5.6. SPUTUM AND BLOOD CULTURES REPORT NO GROWTH. A CHEST CTA WAS OBTAINED THIS MORNING AND REVEALED: No PTE however evaluation is significant limited by con trast bolus timing for detection of segmental or subsegmental pulmonary thromboembolism. Progressive enlargement of loculated right-sided pleural effusions, on today's examination there is moderate amount of gas noted within the dependent portion of the right pleural fluid collection most consistent with an empyema; however the possibility of a bronchopleural fistula is not excluded and clinical correlation is needed. Predominately right middle and lower lobe peribronchial consolidation and reticulation are most consistent with bronchopneumonia. Enlarged right upper lower paratracheal, right hilar and subcarinal lymph nodes are likely reactive to the above described acute infectious process and empyema; however attention on follow-up chest CT examination after completion of therapy is recommended to ensure resolution. HE IS CURRENTLY RECEIVING DUONEBS, LEVAQUIN 750MG IV DAILY, ZOSYN 3.375G IV TID, AND VANCOMYCIN 1G IV Q8H. TODAY, WE WILL CONSULT WITH FOR POSSIBLE CHEST TUBE AND CENTRAL LINE PLACEMENT DUE TO THE NEED FOR IV ANTIBIOTICS AFTER DISCHARE. OTHERWISE, WE WILL CONTINUE WITH CURRENT PLAN OF CARE. WE WILL FOLLOW UP WITH AM LABS AND CONTINUE TO MONITOR. - Past Medical Family Social History Past Med/Fam/Surg Hx: No changes since H&P Allergies: Allergies No Known Drug Allergies Allergy (Verified 11/01/18 20:10) - Review of Systems ROS: No change since H&P - Vital Signs and I&O's Vital Signs: Temperature 99.2 F Pulse Rate [Brachial] 82 Pulse Rate 91 Respiratory Rate 26 Blood Pressure [Right Arm] 122/60 Blood Pressure 139/77 O2 Sat by Pulse Oximetry 95 Intake and Output: Intake & Output 11/07/18 11/08/18 11/09/18 11/10/18 11:59 11:59 11:59 11:59 Intake Total 3720 / 3720 2770 / 2770 4750 / 4750 2950 / 2950 Balance 3720 / 3720 2770 / 2770 4750 / 4750 2950 / 2950 - Physical Exam Oriented: Normal Eyes: Normal Ear: Normal Nose: Normal Throat: Normal Respiratory: Generalized, Diminished, Wheezes, Rhonchi Cardiovascular: Normal. negative: S3, S4, Murmur : Normal Auscultation: Bowel Sounds: Normal Palpation: Normal Tenderness: Normal Skin: Normal Musculoskeletal: Normal Psychiatric: Normal Mood Description: Calm Affect: Normal Speech Pattern: Clear, Appropriate - Laboratory and Diagnostics Result Diagrams: 11/10/18 06:05 11/10/18 06:05 Labs: 11/07/18 17:17 Sputum - Expectorated Sputum Sputum Culture - Final 11/07/18 17:17 Sputum - Expectorated Sputum - Final 11/01/18 22:43 Blood Blood Culture - Final 11/01/18 22:33 Blood Blood Culture - Final 11/02/18 07:25 Sputum - Expectorated Sputum Sputum Culture - Final 11/02/18 07:25 Sputum - Expectorated Sputum - Final Laboratory WBC 20.4 X10^3/uL (3.6-10.0) H 11/10/18 06:05 RBC 3.88 X10^6/uL (4.7-6.0) L 11/10/18 06:05 Hgb 11.9 g/dL (13.5-18.0) L 11/10/18 06:05 Hct 34.8 % (42.0-54.0) L 11/10/18 06:05 MCV 89.8 fL (80.0-100.0) 11/10/18 06:05 MCH 30.6 pg (27.0-34.0) 11/10/18 06:05 MCHC 34.0 g/dL (33.0-35.0) 11/10/18 06:05 RDW 13.0 % (11.6-16.5) 11/10/18 06:05 Plt Count 546 X10^3/uL (150.0-450.0) H 11/10/18 06:05 Plt Count Comment Increased (ADEQUATE) 11/09/18 04:51 MPV 7.5 fL (7.4-11.0) 11/10/18 06:05 Neut % (Auto) 80.4 % (42.0-75.0) H 11/10/18 06:05 Lymph % (Auto) 10.1 % (21.0-51.0) L 11/10/18 06:05 [place] % (Auto) 8.3 % (0.0-13.0) 11/10/18 06:05 Eos % (Auto) 0.7 % (0.9-2.9) L 11/10/18 06:05 Baso % (Auto) 0.5 % (0.2-1.0) 11/10/18 06:05 Neut # (Auto) 16.4 x10^3/uL (2.2-4.8) H 11/10/18 06:05 Lymph # (Auto) 2.1 X10^3/uL (1.3-2.9) 11/10/18 06:05 [place] # (Auto) 1.7 x10^3/uL (0.3-0.8) H 11/10/18 06:05 Eos # (Auto) 0.1 x10^3/uL (0.0-0.2) 11/10/18 06:05 Baso # (Auto) 0.1 X10^3/uL (0.0-0.1) 11/10/18 06:05 Absolute Nucleated RBC 0.0 /100WBC 11/10/18 06:05 Total Counted 100 11/09/18 04:51 Neutrophils % (Manual) 82 % (39-76) H 11/09/18 04:51 Band Neutrophils % 1 % (0-10) 11/08/18 05:00 Lymphocytes % (Manual) 11 % (13-43) L 11/09/18 04:51 Monocytes % (Manual) 6 % (4-9) 11/09/18 04:51 Eosinophils % (Manual) 1 % (0-6) 11/09/18 04:51 Toxic Granulation Slight A 11/04/18 04:34 Plt Morphology Comment Normal (NORMAL) 11/09/18 04:51 RBC Morphology Normal (NORMAL) 11/09/18 04:51 Smear Path Review See note 11/02/18 04:31 PT 14.8 SECONDS (11.8-14.3) 11/01/18 20:22 INR Target Range - 11/01/18 20:22 INR 1.20 (0.8-1.3) 11/01/18 20:22 APTT 30.8 SECONDS (22.9-36.5) 11/01/18 20:22 PTT Comment - 11/01/18 20:22 Sample Site Rr 11/08/18 10:35 ABG pH 7.470 (7.35-7.45) H 11/08/18 10:35 ABG pCO2 37.0 mmHg (35.0-45.0) 11/08/18 10:35 ABG pO2 60.0 mmHg (80.0-100.0) L 11/08/18 10:35 ABG HCO3 26.9 mmol/L (22-26) H 11/08/18 10:35 ABG O2 Saturation 92.0 % (90-100) 11/08/18 10:35 ABG Base Excess 3.2 mmol/L (-2.0-2.0) H 11/08/18 10:35 Stan Test Pos 11/08/18 10:35 A-a Gradient 43.0 mmHg 11/08/18 10:35 FiO2 21.0 11/08/18 10:35 Blood Gas Comments Pt mia well. cdn 11/08/18 10:35 Sodium 136 mmol/L (136-145) 11/10/18 06:05 Corrected Sodium TNP 11/10/18 06:05 Potassium 4.1 mmol/L (3.5-5.1) 11/10/18 06:05 Chloride 102 mmol/L (98-107) 11/10/18 06:05 Carbon Dioxide 24.7 mmol/L (21-32) 11/10/18 06:05 BUN 7 mg/dL (7-18) 11/10/18 06:05 Creatinine 0.75 mg/dL (0.70-1.30) 11/10/18 06:05 Est GFR (MDRD) Af Amer > 60 (>60) 11/10/18 06:05 Est GFR (MDRD) Non-Af > 60 (>60) 11/10/18 06:05 Glucose 108 mg/dL (65-99) H 11/10/18 06:05 Hemoglobin A1c 6.4 % 11/06/18 05:42 Lactic Acid 1.8 mmol/L (0.4-2.0) 11/06/18 09:40 Calcium 8.6 mg/dL (8.5-10.1) 11/10/18 06:05 Corrected Calcium 10.0 mg/dL (8.5-10.1) 11/10/18 06:05 Magnesium 2.1 mg/dL (1.7-2.9) 11/02/18 04:31 Total Bilirubin 0.50 mg/dL (0.2-1.0) 11/10/18 06:05 AST 43 Units/L (15-37) H 11/10/18 06:05 ALT 95 Units/L (12-78) H 11/10/18 06:05 Alkaline Phosphatase 80 Units/L (46-116) 11/10/18 06:05 Creatine Kinase 98 Units/L (39-308) 11/01/18 20:22 CK-MB (CK-2) < 1.0 ng/mL (0-4.0) 11/01/18 20:22 CK/CKMB % Calc 1.0 % (<4) 11/01/18 20:22 Troponin I < 0.02 ng/mL (0-1.5) 11/01/18 20:22 B-Natriuretic Peptide 13.8 pg/mL (0-79) 11/01/18 20:22 Total Protein 8.0 g/dL (6.4-8.2) 11/10/18 06:05 Albumin 2.2 g/dL (3.4-5.0) L 11/10/18 06:05 Globulin 5.8 g/dL (2.5-4.5) H 11/10/18 06:05 Albumin/Globulin Ratio 0.4 Ratio (1.1-2.1) L 11/10/18 06:05 Vancomycin Trough 4.2 ug/mL (15-20) L 11/09/18 12:57 - Plan (1) Pneumonia Status: Acute Qualifiers: Pneumonia type: due to unspecified organism Laterality: right Lung location: unspecified part of lung Qualified Code(s): J18.9 - Pneumonia, unspe cified organism Plan: IV ZOSYN, IV LEVAQUIN, IV VANCOMYCIN, RESPIRATORY TX, SUPPLEMENTAL OXYGEN, CONTINUE TO MONITOR (2) Pleurisy with effusion Status: Acute Plan: TORADOL 30MG IV Q6H SHANNON, RESPIRATORY TX, SUPPLEMENTAL OXYGEN, IV ANTIBIOTICS, CONTINUE TO MONITOR (3) Empyema of right pleural space Status: Acute Plan: CONSULT GENERAL SURGERY FOR POSSIBLE CHEST TUBE, CENTRAL LINE FOR EXTENDED COURSE OF IV ANTIBIOTICS
[2018-11-10] MEDS: PULMICORT NEB TX 0.5 MG NEB SCH ×2 (09:06→20:39)
[2018-11-10] MEDS: DUONEB 0.5 MG/3 MG NEB SCH ×4 (09:06→20:39)
[2018-11-10] MEDS ORDERED: LR 1000 ML IV 1,000 ML ONE (10:29)
[2018-11-10] MEDS ORDERED: XYLOCAINE 1 % (PLAIN) ONE ×2 (10:34→12:46)
[2018-11-10] MEDS: PROTONIX TAB 40 MG PO SCH (10:43)
[2018-11-10] MEDS: ROBITUSSIN DM PO SCH ×4 (10:44→20:39)
[2018-11-10] MEDS: VSL#3 PO SCH (10:44)
[2018-11-10] MEDS: ZESTRIL TAB 5 MG PO SCH (10:44)
[2018-11-10] MEDS: LOVENOX INJ 40 MG SYR SC SCH (10:45)
[2018-11-10] MEDS ORDERED: FENTANYL INJ 100 mcg ONE (10:50)
--- NOTE | 2018-11-10 12:23 | RAD ---
History: Postop unsuccessful thoracentesis Study: Upright portable AP chest Comparison: Earlier examination at 4:42 a.m. Findings: There is no pneumothorax. There is persistent right lateral chest wall pleural thickening unchanged suggesting loculated pleural fluid the left lung is clear. There is subsegmental atelectasis in the right mid lung and probable consolidation or atelectasis at the right lung base. The heart is mildly enlarged. Impression: Unchanged loculated right pleural fluid collection or empyema. No pneumothorax status post attempted thoracentesis Reported By:
[2018-11-10] MEDS: NORCO 5/325 MG TAB PO PRN (12:46)
[2018-11-10] MEDS: DIFLUCAN 200 MG IV PREMIX* 200 MG/100 ML BAG IV SCH (13:13)
[2018-11-10 13:49] LABS: CREATININE 0.73 mg/dL (0.70-1.30); VANCOMYCIN,TROUGH 6.3 ug/mL (15-20)
[2018-11-10] MEDS ORDERED: XYLOCAINE 2 % (PLAIN) ONE (15:27)
[2018-11-10] MEDS ORDERED: DIPRIVAN VIAL ONE (15:27)
[2018-11-10] MEDS ORDERED: VERSED ONE (15:27)
--- NOTE | 2018-11-10 21:03 | PCM.PROG ---
Progress Note - Progress Note for Day of Date of Exam: 11/10/18 - Subjective Subjective: IS A 32 YEAR OLD MALE WHO WAS ADMITTED FOR TREATMENT OF RIGHT MIDDLE AND LOWER LOBE PNEUMONIA AND AN EMPYEMA. TODAY, HE IS ALERT AND ORIENTED, LYING IN BED ON MORNING ROUNDS. HE CONTINUES WITH COUGH AND SHORTNESS OF BREATH. ON EXAMINATION, BILATERAL LUNGS ARE NOTED WITH SCATTERED WHEEZING AND RHONCHI THROUGHOUT. ABDOMEN IS ROUND, SOFT, AND NON-TENDER WITH NORMAL BOWEL SOUNDS NOTED IN ALL QUADRANTS. HIS VITALS THIS MORNING ARE: 99.4-84-22-97%-150/70. LABS WERE OBTAINED. ABNORMAL LAB VALUES INCLUDE THE FOLLOWING: WBC DECREASED TO 20.4, RBC 3.88, HGB 11.9, HCT 34.8, PLT COUNT 546, GLUCOSE 108, AST 43, ALT 95, ALBUMIN 2.2, GLOBULIN 5.8. SPUTUM AND BLOOD CULTURES REPORT NO GROWTH. A CHEST XRAY WAS OBTAINED THIS MORNING AND REVEALED: Heart is stable in size. Moderate-sized loculated fluid and gas containing right pleural effusion, compatible with suspected empyema and atelectasis and consolidation of the right lung base appears essentially unchanged since prior exam. Left lung remains clear. No pneumothorax. HE IS CURRENTLY RECEIVING DUONEBS, LEVAQUIN 750MG IV DAILY, ZOSYN 3.375G IV TID, AND VANCOMYCIN 1G IV Q8H. CONSULTED WITH PATIENT AND PLANS TO TAKE HIM TO THE OR THIS MORNING FOR A THORACENTESIS AND PLACEMENT OF A CENTRAL LINE. WE ARE IN AGREEMENT WITH PLAN. OTHERWISE, WE WILL CONTINUE WITH CURRENT PLAN OF CARE. WE WILL FOLLOW UP WITH AM LABS AND CONTINUE TO MONITOR. - Past Medical Family Social History Past Med/Fam/Surg Hx: No changes since H&P Allergies: Allergies No Known Drug Allergies Allergy (Verified 11/01/18 20:10) - Review of Systems ROS: No change since H&P - Vital Signs and I&O's Vital Signs: Temperature 99.2 F Pulse Rate [Brachial] 86 Pulse Rate 76 Respiratory Rate 20 Blood Pressure [Right Arm] 131/73 Blood Pressure 139/77 O2 Sat by Pulse Oximetry 92 Intake and Output: Intake & Output 11/08/18 11/09/18 11/10/18 11/11/18 11:59 11:59 11:59 11:59 Intake Total 2770 / 2770 4750 / 4750 2950 / 2950 1786 / 1786 Balance 2770 / 2770 4750 / 4750 2950 / 2950 1786 - Physical Exam Oriented: Normal Eyes: Normal Ear: Normal Nose: Normal Throat: Normal Respiratory: Generalized, Diminished, Wheezes, Rhonchi Cardiovascular: Normal. negative: S3, S4, Murmur : Normal Auscultation: Bowel Sounds: Normal Tenderness: Normal Skin: Normal Musculoskeletal: Normal Psychiatric: Normal Mood Description: Calm Affect: Normal Speech Pattern: Clear, Appropriate - Laboratory and Diagnostics Result Diagrams: 11/10/18 06:05 11/10/18 13:20 Labs: 11/07/18 17:17 Sputum - Expectorated Sputum Sputum Culture - Final 11/07/18 17:17 Sputum - Expectorated Sputum - Final 11/01/18 22:43 Blood Blood Culture - Final 11/01/18 22:33 Blood Blood Culture - Final 11/02/18 07:25 Sputum - Expectorated Sputum Sputum Culture - Final 11/02/18 07:25 Sputum - Expectorated Sputum - Final Laboratory WBC 20.4 X10^3/uL (3.6-10.0) H 11/10/18 06:05 RBC 3.88 X10^6/uL (4.7-6.0) L 11/10/18 06:05 Hgb 11.9 g/dL (13.5-18.0) L 11/10/18 06:05 Hct 34.8 % (42.0-54.0) L 11/10/18 06:05 MCV 89.8 fL (80.0-100.0) 11/10/18 06:05 MCH 30.6 pg (27.0-34.0) 11/10/18 06:05 MCHC 34.0 g/dL (33.0-35.0) 11/10/18 06:05 RDW 13.0 % (11.6-16.5) 11/10/18 06:05 Plt Count 546 X10^3/uL (150.0-450.0) H 11/10/18 06:05 Plt Count Comment Increased (ADEQUATE) 11/09/18 04:51 MPV 7.5 fL (7.4-11.0) 11/10/18 06:05 Neut % (Auto) 80.4 % (42.0-75.0) H 11/10/18 06:05 Lymph % (Auto) 10.1 % (21.0-51.0) L 11/10/18 06:05 Cannon % (Auto) 8.3 % (0.0-13.0) 11/10/18 06:05 Eos % (Auto) 0.7 % (0.9-2.9) L 11/10/18 06:05 Baso % (Auto) 0.5 % (0.2-1.0) 11/10/18 06:05 Neut # (Auto) 16.4 x10^3/uL (2.2-4.8) H 11/10/18 06:05 Lymph # (Auto) 2.1 X10^3/uL (1.3-2.9) 11/10/18 06:05 Cannon # (Auto) 1.7 x10^3/uL (0.3-0.8) H 11/10/18 06:05 Eos # (Auto) 0.1 x10^3/uL (0.0-0.2) 11/10/18 06:05 Baso # (Auto) 0.1 X10^3/uL (0.0-0.1) 11/10/18 06:05 Absolute Nucleated RBC 0.0 /100WBC 11/10/18 06:05 Total Counted 100 11/09/18 04:51 Neutrophils % (Manual) 82 % (39-76) H 11/09/18 04:51 Band Neutrophils % 1 % (0-10) 11/08/18 05:00 Lymphocytes % (Manual) 11 % (13-43) L 11/09/18 04:51 Monocytes % (Manual) 6 % (4-9) 11/09/18 04:51 Eosinophils % (Manual) 1 % (0-6) 11/09/18 04:51 Toxic Granulation Slight A 11/04/18 04:34 Plt Morphology Comment Normal (NORMAL) 11/09/18 04:51 RBC Morphology Normal (NORMAL) 11/09/18 04:51 Smear Path Review See note 11/02/18 04:31 PT 14.8 SECONDS (11.8-14.3) 11/01/18 20:22 INR Target Range - 11/01/18 20:22 INR 1.20 (0.8-1.3) 11/01/18 20:22 APTT 30.8 SECONDS (22.9-36.5) 11/01/18 20:22 PTT Comment - 11/01/18 20:22 Sample Site Rr 11/08/18 10:35 ABG pH 7.470 (7.35-7.45) H 11/08/18 10:35 ABG pCO2 37.0 mmHg (35.0-45.0) 11/08/18 10:35 ABG pO2 60.0 mmHg (80.0-100.0) L 11/08/18 10:35 ABG HCO3 26.9 mmol/L (22-26) H 11/08/18 10:35 ABG O2 Saturation 92.0 % (90-100) 11/08/18 10:35 ABG Base Excess 3.2 mmol/L (-2.0-2.0) H 11/08/18 10:35 Stan Test Pos 11/08/18 10:35 A-a Gradient 43.0 mmHg 11/08/18 10:35 FiO2 21.0 11/08/18 10:35 Blood Gas Comments Pt mia well. cdn 11/08/18 10:35 Sodium 136 mmol/L (136-145) 11/10/18 06:05 Corrected Sodium TNP 11/10/18 06:05 Potassium 4.1 mmol/L (3.5-5.1) 11/10/18 06:05 Chloride 102 mmol/L (98-107) 11/10/18 06:05 Carbon Dioxide 24.7 mmol/L (21-32) 11/10/18 06:05 BUN 7 mg/dL (7-18) 11/10/18 06:05 Creatinine 0.73 mg/dL (0.70-1.30) 11/10/18 13:20 Est GFR (MDRD) Af Amer > 60 (>60) 11/10/18 06:05 Est GFR (MDRD) Non-Af > 60 (>60) 11/10/18 06:05 Glucose 108 mg/dL (65-99) H 11/10/18 06:05 Hemoglobin A1c 6.4 % 11/06/18 05:42 Lactic Acid 1.8 mmol/L (0.4-2.0) 11/06/18 09:40 Calcium 8.6 mg/dL (8.5-10.1) 11/10/18 06:05 Corrected Calcium 10.0 mg/dL (8.5-10.1) 11/10/18 06:05 Magnesium 2.1 mg/dL (1.7-2.9) 11/02/18 04:31 Total Bilirubin 0.50 mg/dL (0.2-1.0) 11/10/18 06:05 AST 43 Units/L (15-37) H 11/10/18 06:05 ALT 95 Units/L (12-78) H 11/10/18 06:05 Alkaline Phosphatase 80 Units/L (46-116) 11/10/18 06:05 Creatine Kinase 98 Units/L (39-308) 11/01/18 20:22 CK-MB (CK-2) < 1.0 ng/mL (0-4.0) 11/01/18 20:22 CK/CKMB % Calc 1.0 % (<4) 11/01/18 20:22 Troponin I < 0.02 ng/mL (0-1.5) 11/01/18 20:22 B-Natriuretic Peptide 13.8 pg/mL (0-79) 11/01/18 20:22 Total Protein 8.0 g/dL (6.4-8.2) 11/10/18 06:05 Albumin 2.2 g/dL (3.4-5.0) L 11/10/18 06:05 Globulin 5.8 g/dL (2.5-4.5) H 11/10/18 06:05 Albumin/Globulin Ratio 0.4 Ratio (1.1-2.1) L 11/10/18 06:05 Vancomycin Trough 6.3 ug/mL (15-20) L 11/10/18 13:20 - Plan (1) Pneumonia Status: Acute Qualifiers: Pneumonia type: due to unspecified organism Laterality: right Lung location: unspecified part of lung Qualified Code(s): J18.9 - Pneumonia, unspecified organism Plan: IV ZOSYN, IV LEVAQUIN, IV VANCOMYCIN, RESPIRATORY TX, SUPPLEMENTAL OXYGEN, CONTINUE TO MONITOR (2) Pleurisy with effusion Status: Acute Plan: TORADOL 30MG IV Q6H SHANNON, RESPIRATORY TX, SUPPLEMENTAL OXYGEN, IV ANTIBIOTICS, CONTINUE TO MONITOR (3) Empyema of right pleural space Status: Acute Plan: THORACENTESIS TODAY, CENTRAL LINE FOR EXTENDED COURSE OF IV ANTIBIOTICS
[2018-11-11] MEDS: VANCOMYCIN HCL IV SCH (05:05)
[2018-11-11] MEDS: NS IV SCH (05:05)
--- NOTE | 2018-11-11 05:10 | RAD ---
Chest, one view Indication: Shortness of breath Comparison: 11/10/2018 Findings: Heart is stable in size. Loculated right-sided pleural effusion/empyema and atelectasis versus consolidation of the right lung base is essentially unchanged since prior. Left lung remains clear. No pneumothorax. Impression: Stable exam. Reported By:
[2018-11-11] MEDS: ZOSYN VIAL 3.375 GRAMS 3.375 G in NS 100 ML IV + SPIKE MINIBAG* 100 ML IV SCH (05:33)
[2018-11-11 06:33] LABS: BASOPHILS # (AUTO) 0.1 X10^3/uL (0.0-0.1); BASOPHILS % (AUTO) 0.3 % (0.2-1.0); EOSINOPHILS # (AUTO) 0.1 x10^3/uL (0.0-0.2); EOSINOPHILS % (AUTO) 0.7 % (0.9-2.9); HEMOGLOBIN 11.6 g/dL (13.5-18.0); LYMPHOCYTES # (AUTO) 1.8 X10^3/uL (1.3-2.9); LYMPHOCYTES % (AUTO) 10.2 % (21.0-51.0); MEAN CORPUSCULAR HEMOGLOBIN 30.4 pg (27.0-34.0); MEAN CORPUSCULAR HGB CONC 34.2 g/dL (33.0-35.0); MEAN CORPUSCULAR VOLUME 88.9 fL (80.0-100.0); MEAN PLATELET VOLUME 7.5 fL (7.4-11.0); MONOCYTES # (AUTO) 1.6 x10^3/uL (0.3-0.8); MONOCYTES % (AUTO) 8.7 % (0.0-13.0); NEUTROPHILS # (AUTO) 14.4 x10^3/uL (2.2-4.8); NEUTROPHILS % (AUTO) 80.1 % (42.0-75.0); PLATELET COUNT 503 X10^3/uL (150.0-450.0); RED BLOOD COUNT 3.83 X10^6/uL (4.7-6.0); RED CELL DISTRIBUTION WIDTH 13.1 % (11.6-16.5)
[2018-11-11 06:49] LABS: ALANINE AMINOTRANSFERASE 92 Units/L (12-78); ALBUMIN 2.2 g/dL (3.4-5.0); ALKALINE PHOSPHATASE 76 Units/L (46-116); ASPARTATE AMINO TRANSFERASE 45 Units/L (15-37); BLOOD UREA NITROGEN 6 mg/dL (7-18); CALCIUM 8.5 mg/dL (8.5-10.1); CARBON DIOXIDE 24.5 mmol/L (21-32); CHLORIDE 99 mmol/L (98-107); COR CA(FOR HYPOALB) 9.9 mg/dL (8.5-10.1); CREATININE 0.75 mg/dL (0.70-1.30); SODIUM 134 mmol/L (136-145); eGFR NON BLACK RACES > 60 (>60)
[2018-11-11] MEDS: ZESTRIL TAB 5 MG PO SCH (08:37)
[2018-11-11] MEDS: VSL#3 PO SCH (08:37)
[2018-11-11] MEDS: PROTONIX TAB 40 MG PO SCH (08:37)
[2018-11-11] MEDS: ROBITUSSIN DM PO SCH (08:38)
[2018-11-11] MEDS: NS 1/2 1000 ML IV 1,000 ML IV SCH (09:03)
[2018-11-11] MEDS: PULMICORT NEB TX 0.5 MG NEB SCH (09:10)
[2018-11-11] MEDS: DUONEB 0.5 MG/3 MG NEB SCH (09:10)
[2018-11-11] MEDS: LOVENOX INJ 40 MG SYR SC SCH (10:17)
[2018-11-11] MEDS: DIFLUCAN 200 MG IV PREMIX* 200 MG/100 ML BAG IV SCH (10:57)
[2018-11-11] MEDS: LEVAQUIN PREMIX IV 750 MG 750 MG/150 ML BAG IV SCH (12:34)
[2018-11-11 14:23] VITALS: BP 146/66
[2018-11-11 14:28] LABS: CREATININE 0.79 mg/dL (0.70-1.30); VANCOMYCIN,TROUGH 5.7 ug/mL (15-20)
== END 2018-11-11 14:25 | disposition home or self-care (01) | DRG 194 ==
LOC: MED/SURG 19:49 → ER 19:49 → OBSVTOIN 23:36 → MED/SURG 11-02 00:05
PROVIDERS: ADMIT Internal Medicine; ATTEND Internal Medicine
DX: R07.89 Other chest pain; D72.828 Other elevated white blood cell count; R06.02 Shortness of breath; J18.9 Pneumonia, unspecified organism; I10 Essential (primary) hypertension; J90 Pleural effusion, not elsewhere classified; E11.65 Type 2 diabetes mellitus with hyperglycemia
CPT/HCPCS: 36415; 36600; 71010; 71020; 71045; 71046; 71260; 71275; 80053; 80202; 82550; 82553; 82565; 82803; 83036; 83605; 83735; 83880; 84484; 85025; 85060; 85610; 85730; 87040; 87070; 87205; 93005; 94640; 94669; 94760; 96365; 96374; 99231; 99284; A4222; J0696; J1450; J1650; J1885; J1940; J1956; J2250; J2543; J2704; J2920; J3010; J3370; J3490; J7050; J7060; J7120; J7620; J7626